=== PATIENT | female | born 1945 | race Caucasian/White ===

== ENCOUNTER 2021-03-14 07:35 | Day surgery (SDC) | payer MEDICARE ==
[~2021-03-14] VITALS: Ht 170.2 cm; Wt 83.1 kg
[2021-03-14] MEDS ORDERED: METF500C (08:13)
[2021-03-14] MEDS ORDERED: LORA10ER (08:13)
[2021-03-14] MEDS ORDERED: COREG6.25 MG (08:13)
[2021-03-14] MEDS ORDERED: GLIM4 (08:13)
[2021-03-14] MEDS ORDERED: PROP10 (08:14)
[2021-03-14] MEDS ORDERED: ARMOUR THYROID90 M2 (08:15)
[2021-03-14] MEDS ORDERED: VIIBRYD1 EAC2 (08:16)
== END 2021-03-14 10:17 | disposition home or self-care (01) ==
LOC: ORSCSDS 07:35
PROVIDERS: Surgery
PROC: 0DBM8ZX Excision of Descending Colon, Via Natural or Artificial Opening Endoscopic, Diagnostic (ICD-10-PCS; principal; 2021-03-14 08:45)
PROC: 0DBL8ZX Excision of Transverse Colon, Via Natural or Artificial Opening Endoscopic, Diagnostic (ICD-10-PCS; principal; 2021-03-14 08:45)
PROC: 0DBH8ZX Excision of Cecum, Via Natural or Artificial Opening Endoscopic, Diagnostic (ICD-10-PCS; principal; 2021-03-14 08:45)
PROC: 0DBK8ZX Excision of Ascending Colon, Via Natural or Artificial Opening Endoscopic, Diagnostic (ICD-10-PCS; principal; 2021-03-14 08:45)
DX: R19.5 Other fecal abnormalities (principal); D12.2 Benign neoplasm of ascending colon; D12.3 Benign neoplasm of transverse colon; D12.4 Benign neoplasm of descending colon; K63.89 Other specified diseases of intestine; K57.30 Diverticulosis of large intestine without perforation or abscess without bleeding; Z86.010 Personal history of colon polyps; I10 Essential (primary) hypertension; G25.0 Essential tremor; F32.9 Major depressive disorder, single episode, unspecified; E78.2 Mixed hyperlipidemia; E11.9 Type 2 diabetes mellitus without complications; Z79.84 Long term (current) use of oral hypoglycemic drugs; Z79.899 Other long term (current) drug therapy; F17.210 Nicotine dependence, cigarettes, uncomplicated
CPT/HCPCS: 82947; 88305; J0330; J0461; J2405; J2704; J7120

== ENCOUNTER 2021-07-18 03:12 | Emergency (ER) | payer MEDICARE ==
[~2021-07-18] VITALS: Ht 170.2 cm; Wt 83.0 kg
[~2021-07-18 03:12] MED LIST: ARMOUR THYROID90 M2; COREG6.25 MG; GLIM4; LORA10ER; METF500C; PROP10; VIIBRYD1 EAC2
== END 2021-07-18 05:39 | disposition home or self-care (01) ==
LOC: ER 03:12
DX: M25.551 Pain in right hip (principal); F17.200 Nicotine dependence, unspecified, uncomplicated; Z88.0 Allergy status to penicillin; Z79.899 Other long term (current) drug therapy; Z79.84 Long term (current) use of oral hypoglycemic drugs
CPT/HCPCS: 73502; 96372; 99283-25; J1885

== ENCOUNTER 2021-07-27 08:38 | Inpatient (IN) | payer MEDICARE ==
[~2021-07-27] VITALS: Ht 170.2 cm; Wt 83.0 kg
[~2021-07-27 08:38] MED LIST changes: -ARMOUR THYROID90 M2; -GLIM4; -METF500C; -PROP10; -VIIBRYD1 EAC2
[2021-07-27 09:01] LABS: BASOPHILS ABSOLUTE AUTO 0.16 K/mm3 (0.00-0.23); BASOPHILS PERCENT AUTO 1 % (0-2); EOSINOPHILS ABSOLUTE AUTO 0.26 K/mm3 (0.00-0.68); EOSINOPHILS PERCENT AUTO 1 % (0-6); Hematocrit 30.7 % (33.0-51.0); Hemoglobin 10.1 g/dL (11.5-16.0); IMMATURE GRAN PERCENT AUTO 4 % (0-1); LYMPHOCYTES ABSOLUTE AUTO 2.96 K/mm3 (0.84-5.20); LYMPHOCYTES PERCENT AUTO 15 % (21-46); MONOCYTES PERCENT AUTO 12 % (4-13); Mean Corpuscular HGB 32.9 pg (26.0-34.0); Mean Corpuscular HGB Conc 32.9 g/dL (31.5-36.5); Mean Corpuscular Volume 100 fL (80-100); NEUTROPHILS ABSOLUTE AUTO 13.38 K/mm3 (1.96-9.15); NEUTROPHILS PERCENT AUTO 67 % (41-73); Platelet Count 145 K/mm3 (150-400); RDW Coefficient Variation 13.2 % (11.7-14.2); RDW Standard Deviation 47.9 fL (35.1-46.3); Red Blood Cell Count 3.07 M/mm3 (3.80-5.20); White Blood Cell Count 19.96 K/mm3 (4.00-11.30)
[2021-07-27 09:19] LABS: Alanine Aminotransfer (ALT/SGP 19 U/L (12-78); Albumin, Blood 2.7 g/dL (3.4-5.0); Albumin/Globulin Ratio 0.8 (0.8-1.8); Alk Phos 56 U/L (50-136); Anion Gap 6 mmol/L (6-16); Aspartate Aminotrans (AST/SGOT 16 U/L (12-37); Bilirubin, Total 0.4 mg/dL (0.1-1.0); Blood Urea Nitrogen 52 mg/dL (8-24); Bun/Creatinine Ratio 71.9 (12.0-20.0); CO2, Blood 27 mmol/L (21-32); Calcium, Blood 9.4 mg/dL (8.5-10.1); Chloride, Blood 102 mmol/L (98-108); Creatinine, Blood 0.72 mg/dL (0.40-1.00); Globulin, Blood 3.5 g/dL (2.2-4.0); Glomerular Filtration Rate >60 (60-); Glucose, Blood 239 mg/dL (70-99); Potassium, Blood 4.8 mmol/L (3.5-5.5); Sodium, Blood 135 mmol/L (136-145); Total Protein, Blood 6.2 g/dL (6.4-8.2)
[2021-07-27] MEDS ORDERED: ARMOUR THYROID90 M2 PO (12:27)
[2021-07-27] MEDS ORDERED: LOSARTAN POTASS25 M2 PO (12:27)
[2021-07-27] MEDS ORDERED: VIIBRYD40 MG PO (12:28)
[2021-07-27] MEDS ORDERED: PROP10 PO (12:28)
[2021-07-27] MEDS ORDERED: METF500 PO (12:29)
[2021-07-27] MEDS ORDERED: [UNRECOGNIZED DRUG - REMARK] PO (12:29)
[2021-07-27] MEDS ORDERED: GLIM2 PO (12:30)
[2021-07-27 13:07] LABS: Hematocrit 25.5 % (33.0-51.0); Hemoglobin 8.9 g/dL (11.5-16.0)
[2021-07-27 13:45] LABS: SARS-Cov-2 (COVID-19) PCR, MMC NEGATIVE (NEGATIVE)
[2021-07-27 15:17] LABS: Source, Urine Clean Catch
[2021-07-27 15:18] LABS: Hematocrit 25.5 % (33.0-51.0); Hemoglobin 8.9 g/dL (11.5-16.0)
[2021-07-27 15:23] LABS: Appearance, Urine Hazy (Clear); Bilirubin, Urine Neg (Neg); Blood, Urine Neg (Neg); Color, Urine Yellow (P-Yellow); Glucose Qualitative, Urine Neg (Neg); Ketones, Urine Neg (Neg); Leukocyte Esterase, Urine Neg (Neg); Nitrite, Urine Neg (Neg); Protein, Urine Neg (Neg); Urobilinogen, Urine NORM (Normal)
[2021-07-27 15:40] LABS: International Normalized Ratio 1.04; Prothrombin Time Results 10.9 Sec (9.7-11.5)
[2021-07-27 15:44] LABS: Bacteria Rare /hpf; Red Blood Cells, Urine 0-2 /hpf (0-2); Squamous Epithelial Cells Not Seen /hpf (Few); White Blood Cells, Urine 0-2 /hpf (0-5)
--- NOTE | 2021-07-27 17:13 | NUR ---
Met with pt to fill out POLST. She indicated on admission she wanted to have a code status of DNR, so I met with her to fill out POLST. She is alert, oriented and pleasant. She was able to make her needs and wants known without difficulty.
--- NOTE | 2021-07-27 18:33 | NUR ---
ADMIT/SHIFT SUMMARY: PT IS NEW ADMIT FROM ER FOR C/O LOWER ABD PAIN AND BLACK TARRY STOOL SINCE LAST NOC. PT ADMITTED TO PCU W/HOPES OF TRANSFER TO [facility], AWAITING TO HEAR IF TRANSFER WILL BE POSSIBLE. PT A&Ox4, ABLE TO MAKE NEEDS KNOWN, SATS >93% ON RA, SR/ST ON MONITOR. PT C/O TENDERNESS W/PALPATION TO LOWER ABD. PT UP TO BSC A FEW TIMES W/SBA AND WALKER. NO BM BUT MARROON SMEAR NOTED WHEN PT ASSISTED WITH WIPING. DR GAMINO IS AWARE. PROTONIX INFUSION CONTINUES. AT THIS TIME, PT RESTING QUIETLY IN BED WITH CALL LIGHT IN REACH. WILL CONTINUE TO MONITOR AND TREAT ACCORDINGLY UNTIL CHANGE OF SHIFT.
[2021-07-27 22:10] LABS: Hematocrit 21.4 % (33.0-51.0); Hemoglobin 7.3 g/dL (11.5-16.0)
--- NOTE | 2021-07-28 01:30 | NUR ---
ASSUMED CARE OF PT AT 1900. PATIENT HAS COMPLAINED OF A DULL ACHE IN LOWER BELLY REGION THAT IS WORSE WITH PALPATION. PATIENT ALSO C/O PAIN IN RIGHT IV SITE (NONINFILTRATED, LOCATION BASED PAIN). PATIENT HAD A BOWEL MOVEMENT OF A SMALL AMOUNT OF TARRY BLACK STOOL THAT IS MAROON IN COLOR. CHRONIC CONGESTED COUGH NOTED. SINUS ON MONITOR. HGB TRENDING DOWN, OF 21:45 IT'S 7.3.
[2021-07-28 04:39] LABS: Hematocrit 20.9 % (33.0-51.0); Hemoglobin 7.1 g/dL (11.5-16.0); Mean Corpuscular HGB 33.3 pg (26.0-34.0); Mean Corpuscular Volume 98 fL (80-100); Mean Platelet Volume 10.8 fL (9.1-12.4); Platelet Count 121 K/mm3 (150-400); RDW Coefficient Variation 13.6 % (11.7-14.2); Red Blood Cell Count 2.13 M/mm3 (3.80-5.20); White Blood Cell Count 17.24 K/mm3 (4.00-11.30)
[2021-07-28 04:51] LABS: Alanine Aminotransfer (ALT/SGP 14 U/L (12-78); Albumin, Blood 2.3 g/dL (3.4-5.0); Albumin/Globulin Ratio 0.8 (0.8-1.8); Alk Phos 47 U/L (50-136); Anion Gap 6 mmol/L (6-16); Aspartate Aminotrans (AST/SGOT 16 U/L (12-37); Bilirubin, Total 0.5 mg/dL (0.1-1.0); Blood Urea Nitrogen 19 mg/dL (8-24); Bun/Creatinine Ratio 36.3 (12.0-20.0); CO2, Blood 29 mmol/L (21-32); Calcium, Blood 7.8 mg/dL (8.5-10.1); Chloride, Blood 103 mmol/L (98-108); Creatinine, Blood 0.52 mg/dL (0.40-1.00); Glomerular Filtration Rate >60 (60-); Glucose, Blood 147 mg/dL (70-99); Potassium, Blood 3.8 mmol/L (3.5-5.5); Sodium, Blood 138 mmol/L (136-145); Total Protein, Blood 5.3 g/dL (6.4-8.2)
[2021-07-28 09:41] LABS: Hematocrit 19.6 % (33.0-51.0); Hemoglobin 6.5 g/dL (11.5-16.0)
--- NOTE | 2021-07-28 10:32 | NUR ---
UPDATE AT 1019, PT HGB CAME BACK WITH A VALUE OF 6.5 AND HCT VALUE OF 19.6. DR GAMINO WAS NOTIFIED AND ORDERED 2 UNITS OF PACKED RED BLOOD CELLS.
--- NOTE | 2021-07-28 16:54 | NUR ---
SHIFT SUMMARY PT A/0 X4, ANXIOUS AT TIMES. PT O2 SATS > 94% ON RA T/O SHIFT. NO REPORTS OF CHEST PAIN/PRESSURE. PT DID REPORT PAIN IN HANDS, STATES "NEUROPATHY PAIN," TREATED PER EMAR. PT HGB 6.5 AND HCT 19.6 @ 0900, DR GAMINO NOTIFIED, 2 UNITS OF PRBC ODERED AND GIVEN. PT BP WERE HYPOTENSIVE WITH THE MAP'S IN THE 50'S WHEN BLOOD BEGAN TO BE ADMINISTERED, BOLUS OF FLUIDS GIVEN PER EMAR. PT LUNGS WERE CLEAR UNTIL THE LAST 1-2 HOURS OF BLOOD INFUSION, EXPIRATORY WHEEZES HEARD. PT WAS SEEN BY DR CUNNINGHAM, PROCEDURE PLANNED FOR AM [place], NPO AFTER MIDNIGHT EXCEPT FOR WATER/ICE.
[2021-07-28 18:10] LABS: Hematocrit 25.5 % (33.0-51.0); Hemoglobin 8.8 g/dL (11.5-16.0)
--- NOTE | 2021-07-28 22:24 | NUR ---
ASSUMED CARE OF PT AT 1900. PATIENT SITTING UP IN BED WATCHING TV. PATIENT REPORTS WHAT SHE DESCRIBES NEUROPATHY PAIN IN HER HAND AND ELBOW, ALONG WITH LOWER BELLY PAIN. MEDICATED PER EMAR.
[2021-07-29 00:35] LABS: Hemoglobin 8.7 g/dL (11.5-16.0)
--- NOTE | 2021-07-29 02:28 | NUR ---
A/OX4 WITH PERIODS OF HIGH ANXIETY. DNR. PATIENT REPORTS HAND/ELBOW/STOMACH PAIN THAT SHE DESCRIBES NEUROPATHY PAIN. LS CLEAR AND DIM IN BASES, CONGESTED COUGH THAT IS CHRONIC IN NATURE (CIGARETTE SMOKER). SR AT 87, TRACE EDEMA BLE. NO BOWEL MOVEMENTS THIS SHIFT, MULTIPLE INCONTINENT URINE EPISODES IN BRIEFS. HGB 8.7. PATIENT NPO FOR MORNING EGD. WILL REPORT TO DAYSHIFT RN.
[2021-07-29 04:31] LABS: Hemoglobin 8.4 g/dL (11.5-16.0); Mean Corpuscular HGB 32.7 pg (26.0-34.0); Mean Platelet Volume 11.2 fL (9.1-12.4); Platelet Count 109 K/mm3 (150-400); RDW Coefficient Variation 16.8 % (11.7-14.2); RDW Standard Deviation 56.9 fL (35.1-46.3); Red Blood Cell Count 2.57 M/mm3 (3.80-5.20); White Blood Cell Count 12.31 K/mm3 (4.00-11.30)
[2021-07-29 04:32] LABS: Mean Corpuscular Volume 93 fL (80-100)
[2021-07-29 04:45] LABS: Albumin, Blood 2.3 g/dL (3.4-5.0); Anion Gap 3 mmol/L (6-16); Blood Urea Nitrogen 8 mg/dL (8-24); Bun/Creatinine Ratio 15.6 (12.0-20.0); CO2, Blood 30 mmol/L (21-32); Calcium, Blood 8.1 mg/dL (8.5-10.1); Chloride, Blood 105 mmol/L (98-108); Creatinine, Blood 0.51 mg/dL (0.40-1.00); Glomerular Filtration Rate >60 (60-); Glucose, Blood 155 mg/dL (70-99); Phosphorus, Blood 2.4 mg/dL (2.5-4.9); Potassium, Blood 3.6 mmol/L (3.5-5.5); Sodium, Blood 138 mmol/L (136-145)
--- NOTE | 2021-07-29 08:54 | NUR ---
PT RECENTLY TO DAYSURGERY BY T[facility]IRA History, Chart, Medications and Allergies reviewed before start of procedure. LUNGS WITH SLIGHT WHEEZE, PT REPORTS BEING SMOKER. WILL DISCUSS WITH DR CUNNINGHAM. Patient confirms NPO status and agrees with scheduled surgery. Pre-Op teaching done. Pt verbalizes understanding. PT COMFORTABLE ON BED. DENIES CP/SOB.
--- NOTE | 2021-07-29 08:58 | NUR ---
PT HAS PROTONIX DRIP INFUSING. PT HAS POWERGLIDES IN EACH ARM THAT APPEAR TO BE WNL.
--- NOTE | 2021-07-29 09:35 | NUR ---
07/29/21 0935 Melvin Farrar History, Chart, Medications and Allergies reviewed before start of procedure. Patient confirms NPO status and agrees with scheduled surgery. 3-LEAD EKG REVIEWED WITH PHYSICIAN PRIOR TO START OF PROCEDURE. MONITOR INTACT WITH CONTINUOUS PULSE OXIMETRY AND INTERMITTENT BP. PATIENT DETERMINED TO BE ASA APPROPRIATE FOR PROPOFOL SEDATION PRIOR TO START OF PROCEDURE BY DR. CUNNINGHAM. Bite Block Placed, WILL BE REMOVED AFTER PROCEDURE.
--- NOTE | 2021-07-29 12:43 | NUR ---
UPDATE PT ARRIVED FROM PROCEDURE AT 1025 VIA HOSPITAL BED OCCOMPANIED BY 1 MEDICAL STAFF. PT ALERT AND ON RA. REPORT WAS RECIEVED AT BEDSIDE.
--- NOTE | 2021-07-29 17:41 | NUR ---
SHIFT SUMMARY PT A/O X4 AND COOPERATIVE OF CARE. VSS WITH O2 SATS >94% ON ROMM AIR. PT HAD ENDOSCOPY TODAY AND WAS NOTED THAT PT HAD ACTIVE ULCER, ULCER WAS CAUTERIZED. PT HAS BEEN TOLERATING DIET SINCE BEING BACK FROM PROCEDURE, REPORTING SLIGHT PAIN IN ABDOMEN. PT HAS HAD MULTIPLE URGENT ELIMINATIONS WHEN STAFF IS IN THE ROOM. PT ABLE TO LIFT HIPS FOR PLACEMENT OF FRACTURE REED. PT STILL REPORTS "NEUROPIC PAIN" IN RIGHT HAND THAT IS NOW REPORTED TO BE MOVING DOWN TO RIGHT FOOT, TREATED PER EMAR.
--- NOTE | 2021-07-29 21:15 | NUR ---
Assumed care of pt at 1900. Patient laying in bed and appeared less anxious. Urinary urgency/freq continues, pt reports that as her baseline. Small smearing of the same maroon/tarry stool. Had extensive talk regarding smoking cessation, the patient would like to know how to obtain the nicotine patches as they are quite costly for her. Pt reports the alcohol use is a way for her to fall asleep along with tylenol PM, discussed there might be a benefit to seeing her PCP regarding her sleep patterns. Patient very receptive to making healthy lifestyle changes for her health. VSS. Call light within reach and bed in low position.
--- NOTE | 2021-07-30 05:23 | NUR ---
A/OX4. MILD ANXIETY. PATIENT EXPRESSES CONCERN OVER WHO WILL HELP WITH HER CARE ONCE SHE'S HOME AND WOULD LIKE TO SPEAK TO THE PHYSICIAN ABOUT HOME CARE CONSULT. MILD/MOD PAIN IN ABDOMEN AND NEUROPATHIC PAIN IN R ARM. CLEAR UPPER, DIM LOWER. NSR AVG 78. VSS WITH NO HYPOTENSIVE EPISODES. USES BEDPAN AND CALLS APPROPRIATELY. SMALL SMEARING OF THE SAME MAROON/TARRY STOOLS SHE'S HAD THE PREVIOUS DAYS. BLADDER URGENCY/FREQUENCY THAT PATIENT DESCRIBES HER NORMAL. WILL REPORT TO GOLDEN ALCAZAR.
[2021-07-30 09:29] LABS: Hematocrit 27.2 % (33.0-51.0); Hemoglobin 9.4 g/dL (11.5-16.0)
[2021-07-30] MEDS ORDERED: NICO21TP TOP (14:08)
[2021-07-30] MEDS ORDERED: OMEP20ER PO (14:13)
--- NOTE | 2021-07-30 17:39 | NUR ---
DISCHARGE SUMMARY PT HAD EGD YESTERDAY WITH CAUTERIZATION OF NSAID ASSOCIATED ULCERS. PT EXPRESSED CONCERNS WITH BEING ABLE TO CARE FOR HERSELF AT HOME AND WORKED WITH PHYSICAL THERAPY AND OCCUPATIONAL THERAPY THIS SHIFT. HOME WITH HOME HEALTH AND PHYSICAL THERAPY WAS RECOMMENDED. PRIOR TO DISCHARGE PT HAD A MAROON COLORED STOOL AND THE PHYSICIAN WAS NOTIFIED. PHYSICIAN SAW THE PATIENT AND NOTIFIED HER OF HER OPTIONS AND RECOMMENDED THAT SHE DR. LANEE OUT PATIENT FOR A COLONOSCOPY IF THE THE MAROON COLORED STOOLS PERSIST. PT VERBALIZED UNDERSTANDING. SHE WAS DRIVEN HOME BY HER FRIEND.
== END 2021-07-30 16:52 | disposition home health service (06) | DRG 377 ==
LOC: ER 08:38 → PCU 14:14
PROVIDERS: Emergency Medicine; Internal Medicine; Internal Medicine Gastroenterology; Nurse Practitioner Acute Care; ADMIT Internal Medicine
PROC: 0DJ08ZZ Inspection of Upper Intestinal Tract, Via Natural or Artificial Opening Endoscopic (ICD-10-PCS; 2021-07-29)
PROC: 0DB68ZX Excision of Stomach, Via Natural or Artificial Opening Endoscopic, Diagnostic (ICD-10-PCS; principal; 2021-07-29 09:00)
DX: K26.4 Chronic or unspecified duodenal ulcer with hemorrhage (principal); R57.8 Other shock; D62 Acute posthemorrhagic anemia; Z20.822 Contact with and (suspected) exposure to COVID-19; D69.6 Thrombocytopenia, unspecified; E03.9 Hypothyroidism, unspecified; F32.A Depression, unspecified; I69.398 Other sequelae of cerebral infarction; G89.29 Other chronic pain; I10 Essential (primary) hypertension; E11.9 Type 2 diabetes mellitus without complications; F17.210 Nicotine dependence, cigarettes, uncomplicated; Z88.0 Allergy status to penicillin; Z79.84 Long term (current) use of oral hypoglycemic drugs; Z79.899 Other long term (current) drug therapy
CPT/HCPCS: 36415; 36430; 71045; 74177; 80053; 80069; 81001; 82947; 85014; 85018; 85025; 85027; 85610; 86850; 86900; 86901; 86923; 88305; 88342; 96365; 96376; 97110; 97162; 97165; 97530; 97535; 99285-25; A9270; C1751; C9113; J2704; J2765; J7030; J7120; P9016; Q9967; U0004

== ENCOUNTER 2022-07-12 20:22 | Emergency (ER) | payer MEDICARE, OTHER ==
[~2022-07-12] VITALS: Ht 170.2 cm; Wt 82.5 kg
[~2022-07-12 20:22] MED LIST changes: +ARMOUR THYROID90 M2 PO; +GLIM2 PO; +LOSARTAN POTASS25 M2 PO; +METF500 PO; +NICO21TP TOP; +OMEP20ER PO; +PROP10 PO; +VIIBRYD40 MG PO; +[UNRECOGNIZED DRUG - REMARK] PO
== END 2022-07-13 02:36 | disposition home or self-care (01) ==
LOC: ER 20:22
DX: S30.0XXA Contusion of lower back and pelvis, initial encounter (principal); E11.9 Type 2 diabetes mellitus without complications; E03.9 Hypothyroidism, unspecified; F17.210 Nicotine dependence, cigarettes, uncomplicated; W19.XXXA Unspecified fall, initial encounter; Z88.0 Allergy status to penicillin; Z79.899 Other long term (current) drug therapy; Z79.84 Long term (current) use of oral hypoglycemic drugs; Z79.890 Hormone replacement therapy
CPT/HCPCS: 36415; 72100; 72192; 73502; 82947; 96374; 96375; 99284-25; A9270; J2405; J3010

== ENCOUNTER 2022-07-31 10:56 | Emergency (ER) | payer MEDICARE, OTHER ==
[~2022-07-31] VITALS: Ht 170.2 cm; Wt 81.7 kg
[2022-07-31 12:24] LABS: BASOPHILS ABSOLUTE AUTO 0.17 K/mm3 (0.00-0.23); BASOPHILS PERCENT AUTO 2 % (0-2); EOSINOPHILS ABSOLUTE AUTO 0.13 K/mm3 (0.00-0.68); EOSINOPHILS PERCENT AUTO 1 % (0-6); Hematocrit 39.6 % (33.0-51.0); Hemoglobin 12.8 g/dL (11.5-16.0); IMMATURE GRAN ABSOLUTE AUTO 0.21 K/mm3 (0.00-0.10); IMMATURE GRAN PERCENT AUTO 2 % (0-1); LYMPHOCYTES PERCENT AUTO 16 % (21-46); MONOCYTES ABSOLUTE AUTO 1.67 K/mm3 (0.16-1.47); MONOCYTES PERCENT AUTO 15 % (4-13); Mean Corpuscular HGB 31.4 pg (26.0-34.0); Mean Corpuscular HGB Conc 32.3 g/dL (31.5-36.5); Mean Corpuscular Volume 97 fL (80-100); Mean Platelet Volume 11.3 fL (9.1-12.4); NEUTROPHILS ABSOLUTE AUTO 7.14 K/mm3 (1.96-9.15); NEUTROPHILS PERCENT AUTO 64 % (41-73); Platelet Count 252 K/mm3 (150-400); RDW Coefficient Variation 14.2 % (11.7-14.2); RDW Standard Deviation 50.7 fL (35.1-46.3); Red Blood Cell Count 4.08 M/mm3 (3.80-5.20); White Blood Cell Count 11.12 K/mm3 (4.00-11.30)
[2022-07-31 12:41] LABS: Albumin, Blood 3.1 g/dL (3.4-5.0); Albumin/Globulin Ratio 0.7 (0.8-1.8); Bilirubin, Total 0.6 mg/dL (0.1-1.0); Bun/Creatinine Ratio 40.9 (12.0-20.0); Calcium, Blood 9.2 mg/dL (8.5-10.1); Creatinine, Blood 0.49 mg/dL (0.40-1.00); Globulin, Blood 4.6 g/dL (2.2-4.0); Potassium, Blood 3.6 mmol/L (3.5-5.5); Total Protein, Blood 7.7 g/dL (6.4-8.2)
[2022-07-31] MEDS ORDERED: CEPH500 PO (15:46)
== END 2022-07-31 15:50 | disposition home or self-care (01) ==
LOC: ER 10:56
PROVIDERS: Physician Assistant
DX: L03.116 Cellulitis of left lower limb (principal); E11.51 Type 2 diabetes mellitus with diabetic peripheral angiopathy without gangrene; F17.210 Nicotine dependence, cigarettes, uncomplicated
CPT/HCPCS: 36415; 80053; 85025; 93971

== ENCOUNTER → 2023-05-22 | Outpatient (CLI) | payer MEDICARE | LOC: LAB 12:00 | DX: J32.0 Chronic maxillary sinusitis (principal) ==

== ENCOUNTER 2023-09-13 04:43 | Emergency (ER) | payer MEDICARE ==
[~2023-09-13] VITALS: Ht 172.7 cm; Wt 72.6 kg
[~2023-09-13 04:43] MED LIST changes: +CEPH500 PO
[2023-09-13 05:19] LABS: Hematocrit 42.2 % (33.0-51.0); Hemoglobin 13.8 g/dL (11.5-16.0); Mean Corpuscular HGB 28.2 pg (26.0-34.0); Mean Corpuscular HGB Conc 32.7 g/dL (31.5-36.5); Mean Corpuscular Volume 86 fL (80-100); Mean Platelet Volume 10.1 fL (9.1-12.4); Platelet Count 284 K/mm3 (150-400); RDW Coefficient Variation 13.3 % (11.7-14.2); RDW Standard Deviation 41.8 fL (35.1-46.3); White Blood Cell Count 15.47 K/mm3 (4.00-11.30)
[2023-09-13 06:04] LABS: Albumin, Blood 3.3 g/dL (3.4-5.0); Albumin/Globulin Ratio 0.8 (0.8-1.8); Bilirubin, Total 0.7 mg/dL (0.1-1.0); Bun/Creatinine Ratio 26.9 (12.0-20.0); Calcium, Blood 8.6 mg/dL (8.5-10.1); Creatinine, Blood 0.56 mg/dL (0.40-1.00); Globulin, Blood 4.1 g/dL (2.2-4.0); Potassium, Blood 4.2 mmol/L (3.5-5.5); Total Protein, Blood 7.4 g/dL (6.4-8.2)
[2023-09-13 06:14] LABS: BAND PERCENT MAN 4 % (0-8); BASOPHILS PERCENT MAN 0 % (0-2); EOSINOPHILS PERCENT MAN 0 % (0-6); LYMPHOCYTES ABSOLUTE MAN 2.47 K/mm3 (0.84-5.20); LYMPHOCYTES PERCENT MAN 16 % (21-46); METAMYELOCYTE PERCENT MAN 2 % (0-0); MONOCYTES ABSOLUTE MAN 0.92 K/mm3 (0.16-1.47); MONOCYTES PERCENT MAN 6 % (4-13); MYELOCYTE ABSOLUTE MAN 0.61 K/mm3 (0.00-0.00); MYELOCYTE PERCENT MAN 4 % (0-0); NEUTROPHILS ABSOLUTE MAN 11.13 K/mm3 (1.96-9.15); SEG NEUTROPHILS PERCENT MAN 68 % (41-73); TOTAL CELLS COUNTED 100
[2023-09-13 07:35] LABS: Influenza A, PCR NEGATIVE (NEGATIVE); Influenza B, PCR NEGATIVE (NEGATIVE); Resp Syncytial Virus, PCR NEGATIVE (NEGATIVE); SARS-Cov-2 (COVID-19) PCR, MMC NEGATIVE (NEGATIVE)
[2023-09-13 09:29] VITALS: BP 167/74
== END 2023-09-13 09:31 | disposition home or self-care (01) ==
LOC: ER 04:43
PROVIDERS: Emergency Medicine; Student in an Organized Health Care Education/Training Program
DX: S00.83XA Contusion of other part of head, initial encounter (principal); S00.03XA Contusion of scalp, initial encounter; S40.011A Contusion of right shoulder, initial encounter; S80.01XA Contusion of right knee, initial encounter; F17.200 Nicotine dependence, unspecified, uncomplicated; E87.1 Hypo-osmolality and hyponatremia; W01.0XXA Fall on same level from slipping, tripping and stumbling without subsequent striking against object, initial encounter; Z11.52 Encounter for screening for COVID-19
CPT/HCPCS: 0241U; 70450; 71045; 72125; 73030; 73562-RT; 80053; 85025; 93005; 93010; 99284-25

== ENCOUNTER 2023-10-23 13:27 | Inpatient (IN) | payer MEDICARE ==
[~2023-10-23] VITALS: Ht 170.2 cm; Wt 79.6 kg
[2023-10-23 15:03] LABS: BASOPHILS ABSOLUTE AUTO 0.46 K/mm3 (0.00-0.23); BASOPHILS PERCENT AUTO 2 % (0-2); EOSINOPHILS ABSOLUTE AUTO 0.03 K/mm3 (0.00-0.68); EOSINOPHILS PERCENT AUTO 0 % (0-6); Hematocrit 39.9 % (33.0-51.0); Hemoglobin 13.8 g/dL (11.5-16.0); IMMATURE GRAN ABSOLUTE AUTO 0.77 K/mm3 (0.00-0.10); IMMATURE GRAN PERCENT AUTO 4 % (0-1); LYMPHOCYTES ABSOLUTE AUTO 1.98 K/mm3 (0.84-5.20); LYMPHOCYTES PERCENT AUTO 9 % (21-46); MONOCYTES ABSOLUTE AUTO 1.21 K/mm3 (0.16-1.47); MONOCYTES PERCENT AUTO 6 % (4-13); Mean Corpuscular HGB 27.9 pg (26.0-34.0); Mean Corpuscular HGB Conc 34.6 g/dL (31.5-36.5); Mean Corpuscular Volume 81 fL (80-100); Mean Platelet Volume 10.2 fL (9.1-12.4); NEUTROPHILS PERCENT AUTO 80 % (41-73); Platelet Count 392 K/mm3 (150-400); RDW Coefficient Variation 12.6 % (11.7-14.2); Red Blood Cell Count 4.94 M/mm3 (3.80-5.20); White Blood Cell Count 21.95 K/mm3 (4.00-11.30)
[2023-10-23 15:19] LABS: Albumin/Globulin Ratio 0.7 (0.8-1.8); Bilirubin, Total 0.8 mg/dL (0.1-1.0); Bun/Creatinine Ratio 30.6 (12.0-20.0); Creatinine, Blood 0.36 mg/dL (0.40-1.00); Globulin, Blood 4.3 g/dL (2.2-4.0); Potassium, Blood 4.3 mmol/L (3.5-5.5); Total Protein, Blood 7.3 g/dL (6.4-8.2)
[2023-10-23 15:52] LABS: Source, Urine Straight Cath
[2023-10-23 15:58] LABS: Appearance, Urine Cloudy (Clear); Bilirubin, Urine Neg (Neg); Blood, Urine 4+ (Neg); Color, Urine Yellow (P-Yellow); Glucose Qualitative, Urine Neg (Neg); Ketones, Urine Neg (Neg); Leukocyte Esterase, Urine 3+ (Neg); Nitrite, Urine Pos (Neg); Protein, Urine 2+ (Neg); Urobilinogen, Urine NORM (Normal)
[2023-10-23 16:07] LABS: Bacteria Many /hpf; Squamous Epithelial Cells Few /hpf (Few); Transitional Epithelial Cells Few /hpf (0-Rare)
[2023-10-23 16:32] LABS: U Amphetamine Screen Not Detected; U Barbituate Screen Not Detected; U Benzodiazapine Screen Not Detected; U Buprenorphine Screen Not Detected; U Cannabinoids Screen Not Detected; U Cocaine Screen Not Detected; U Methadone Screen Not Detected; U Methamphetamine Screen Not Detected; U Opiates Screen Not Detected; U Oxycodone Screen Not Detected; U Phencyclidine Screen Not Detected
[2023-10-23] MEDS ORDERED: CEPH500 PO (19:05)
[2023-10-23] MEDS ORDERED: NIVA THYROID60 MG PO (19:06)
[2023-10-23] MEDS ORDERED: OXYB5 PO (19:06)
[2023-10-23] MEDS ORDERED: EFFEXOR XR150 MG PO (19:06)
[2023-10-23 21:00] VITALS: BP 150/88
[2023-10-23 23:13] VITALS: BP 183/66
[2023-10-23] MEDS ORDERED: LOSA50 PO (23:57)
[2023-10-24] MEDS ORDERED: Ventolin/Prove6.7 GM INH
[2023-10-24 04:15] VITALS: BP 154/60
[2023-10-24 05:09] LABS: BASOPHILS ABSOLUTE AUTO 0.44 K/mm3 (0.00-0.23); BASOPHILS PERCENT AUTO 2 % (0-2); EOSINOPHILS ABSOLUTE AUTO 0.01 K/mm3 (0.00-0.68); EOSINOPHILS PERCENT AUTO 0 % (0-6); Hematocrit 40.2 % (33.0-51.0); Hemoglobin 13.6 g/dL (11.5-16.0); IMMATURE GRAN ABSOLUTE AUTO 0.76 K/mm3 (0.00-0.10); IMMATURE GRAN PERCENT AUTO 3 % (0-1); LYMPHOCYTES PERCENT AUTO 7 % (21-46); MONOCYTES ABSOLUTE AUTO 1.15 K/mm3 (0.16-1.47); MONOCYTES PERCENT AUTO 5 % (4-13); Mean Corpuscular HGB 27.7 pg (26.0-34.0); Mean Corpuscular HGB Conc 33.8 g/dL (31.5-36.5); Mean Corpuscular Volume 82 fL (80-100); Mean Platelet Volume 10.2 fL (9.1-12.4); NEUTROPHILS ABSOLUTE AUTO 18.41 K/mm3 (1.96-9.15); NEUTROPHILS PERCENT AUTO 83 % (41-73); Platelet Count 369 K/mm3 (150-400); RDW Coefficient Variation 12.6 % (11.7-14.2); RDW Standard Deviation 37.3 fL (35.1-46.3); Red Blood Cell Count 4.91 M/mm3 (3.80-5.20); White Blood Cell Count 22.27 K/mm3 (4.00-11.30)
[2023-10-24 05:28] LABS: Albumin, Blood 2.9 g/dL (3.4-5.0); Albumin/Globulin Ratio 0.7 (0.8-1.8); Bilirubin, Total 0.8 mg/dL (0.1-1.0); Bun/Creatinine Ratio 24.2 (12.0-20.0); Calcium, Blood 8.6 mg/dL (8.5-10.1); Creatinine, Blood 0.37 mg/dL (0.40-1.00); Globulin, Blood 3.9 g/dL (2.2-4.0); Magnesium, Blood 1.7 mg/dL (1.6-2.4); Potassium, Blood 3.7 mmol/L (3.5-5.5); Total Protein, Blood 6.8 g/dL (6.4-8.2)
--- NOTE | 2023-10-24 06:36 | NUR ---
EOS: PATIENT A/O X 2-3 COOPERATIVE PLEASANT, DENIES CHEST PAIN PRESSURE OR SOB. NOT IMPULSIVE, BED ALARM ON FOR SAFETY Q2 TURNS. NO CONCERNS AT THIS TIME FINISHING HER 75mL/HR OF NS .9% 1/2 NS AFTER. PATIENT HAS BEEN RESTING MOST OF THE NIGHT DID NEED A 1 X PRN HYDRALAZINE FOR BLOOD PRESSURE >180. LARGE UNDOCUMENTED URINARY VOID. NO CONCERNS AT THIS TIME.
[2023-10-24 08:13] VITALS: BP 160/73
[2023-10-24 11:47] VITALS: BP 162/82
[2023-10-24 15:46] VITALS: BP 158/69
--- NOTE | 2023-10-24 17:13 | NUR ---
SHIFT SUMMARY: PT ALERT AND ORIENTED X3, ABLE TO FOLLOW COMMANDS AND MAKE NEEDS KNOWN. FORGETFUL AT TIMES, HX OF DEMENTIA. BED ALARM ON SAFETY. STRENGTH WEAK, EQUAL BILATERALLY. BP AND HR STABLE, AFEBRILE, SPO2 >94% ON ROOM AIR. RESPIRATIONS EVEN AND UNLABORED. BOWEL SOUNDS +. ABD SOFT, NON TENDER. PULSES STRONG AND EQUAL THROUGHOUT. PT WITH NOTED SKIN BREAKDOWN W/ SCABBING ON L. FOOT. SEE CHART FOR PICTURES. NA 123 ON 1200 DRAW, AWAITING [address], PT WITH GOOD URINARY OUTPUT. ONE BM. LR GTT @75ML IN L. AC. PHYSICAL THERAPY IN THIS AFTERNOON, ABLE TO GET PT INTO CHAIR VIA ONE PERSON ASSIST. PT REPOS Q2 TO MAINTAIN SKIN INTEGRITY. CBG STABLE. BED IN LOW, CALL LIGHT IN REACH, WILL REPORT TO ONCOMING RN.
[2023-10-24 20:06] VITALS: BP 154/63
[2023-10-25 00:32] VITALS: BP 156/59
[2023-10-25 04:00] VITALS: BP 156/77
[2023-10-25 04:13] LABS: BASOPHILS ABSOLUTE AUTO 0.46 K/mm3 (0.00-0.23); BASOPHILS PERCENT AUTO 2 % (0-2); EOSINOPHILS ABSOLUTE AUTO 0.09 K/mm3 (0.00-0.68); EOSINOPHILS PERCENT AUTO 1 % (0-6); Hematocrit 36.1 % (33.0-51.0); Hemoglobin 12.2 g/dL (11.5-16.0); IMMATURE GRAN ABSOLUTE AUTO 0.91 K/mm3 (0.00-0.10); IMMATURE GRAN PERCENT AUTO 5 % (0-1); LYMPHOCYTES ABSOLUTE AUTO 1.82 K/mm3 (0.84-5.20); LYMPHOCYTES PERCENT AUTO 9 % (21-46); MONOCYTES ABSOLUTE AUTO 1.41 K/mm3 (0.16-1.47); MONOCYTES PERCENT AUTO 7 % (4-13); Mean Corpuscular HGB 27.5 pg (26.0-34.0); Mean Corpuscular HGB Conc 33.8 g/dL (31.5-36.5); Mean Corpuscular Volume 81 fL (80-100); Mean Platelet Volume 10.4 fL (9.1-12.4); NEUTROPHILS ABSOLUTE AUTO 15.15 K/mm3 (1.96-9.15); NEUTROPHILS PERCENT AUTO 76 % (41-73); Platelet Count 352 K/mm3 (150-400); RDW Coefficient Variation 12.5 % (11.7-14.2); RDW Standard Deviation 37.2 fL (35.1-46.3); Red Blood Cell Count 4.44 M/mm3 (3.80-5.20); White Blood Cell Count 19.84 K/mm3 (4.00-11.30)
[2023-10-25 04:37] LABS: Bun/Creatinine Ratio 20.3 (12.0-20.0); Calcium, Blood 8.5 mg/dL (8.5-10.1); Creatinine, Blood 0.49 mg/dL (0.40-1.00)
--- NOTE | 2023-10-25 05:46 | NUR ---
SHIFT SUMMARY ASSUMED CARE OF PT AT 1900. PT IS A/OX3-4. PT WAS SLIGHTLY FORGETFUL THIS AM BUT WAS REORIENTED. LUNG SOUNDS CLEAR. HEART SOUNDS REGULAR. PT C/O NUMBNESS IN LEGS, "LIKE CRAMPING" SHE SAID, BUT IT WENT AWAY. OTHER THAN THAT PT SLEPT T/O THE NOC. WOUND ON PT FOOT CLEANED AND REDRESSED.
[2023-10-25 07:23] VITALS: BP 190/80
[2023-10-25 10:13] VITALS: BP 153/66
[2023-10-25 15:07] VITALS: BP 143/70
--- NOTE | 2023-10-25 17:21 | NUR ---
SHIFT SUMMARY: PT REMAINS ALERT AND ORIENTED X2-3. ABLE TO FOLLOW COMMANDS AND MAKE NEEDS KNOWN. HX OF DEMENTIA. SLOW TO RESPOND AT TIMES. STRENGTH WEAK, EQUAL BILATERALLY. BP AND HR STABLE. AFEBRILE. SPO2 >98% ON ROOM AIR. RESPIRATIONS EVEN AND UNLABORED. LUNG SOUNDS CLEAR. ABD SOFT, NON TENDER, BOWEL SOUNDS +. PULSES STRONG AND EQUAL THROUGHOU. PT MEDICATED X1 FOR PAIN, SEE EMAR. PUREWICK IN PLACE WITH GOOD URINARY OUTPUT. NO BM. PT REPOS TO MAINTAIN SKIN INTEGRITY THROUGHOUT SHIFT. NA+ 119 THIS AFTERNOON, CRITICAL VALUE NOTIFIED TO MD, NEW ORDERS RECEIVED. NS GTT @75ML/HR IN L.AC. CBG STABLE. BED ALARM ON FOR SAFETY, BED IN LOW, CALL LIGHT IN REACH, WILL REPORT TO ONCOMING RN.
[2023-10-25 20:19] VITALS: BP 160/95
--- NOTE | 2023-10-25 23:38 | NUR ---
PT TRANSFER REPORT GIVEN TO АЛЕКСАНДР ALCAZAR ON MEDICAL FLOOR. PT WAS SLEEPING ON TRASER. NO NEW COMPLAINTS. PT LEFT FLOOR AT 2330.
[2023-10-26] MEDS ORDERED: ATOR40TA PO (01:09)
[2023-10-26] MEDS ORDERED: Primidone50 MG PO (01:16)
[2023-10-26] MEDS ORDERED: METFORMIN HCL500 M2 PO (01:16)
[2023-10-26] MEDS ORDERED: PROP10 PO ×2 (01:17→01:18)
[2023-10-26 05:22] VITALS: BP 181/68
[2023-10-26 05:26] LABS: BASOPHILS ABSOLUTE AUTO 0.39 K/mm3 (0.00-0.23); BASOPHILS PERCENT AUTO 2 % (0-2); EOSINOPHILS ABSOLUTE AUTO 0.03 K/mm3 (0.00-0.68); EOSINOPHILS PERCENT AUTO 0 % (0-6); Hemoglobin 12.8 g/dL (11.5-16.0); IMMATURE GRAN ABSOLUTE AUTO 0.68 K/mm3 (0.00-0.10); IMMATURE GRAN PERCENT AUTO 4 % (0-1); LYMPHOCYTES ABSOLUTE AUTO 1.55 K/mm3 (0.84-5.20); LYMPHOCYTES PERCENT AUTO 9 % (21-46); MONOCYTES ABSOLUTE AUTO 1.33 K/mm3 (0.16-1.47); MONOCYTES PERCENT AUTO 7 % (4-13); Mean Corpuscular HGB 27.6 pg (26.0-34.0); Mean Corpuscular HGB Conc 34.6 g/dL (31.5-36.5); Mean Corpuscular Volume 80 fL (80-100); Mean Platelet Volume 10.1 fL (9.1-12.4); NEUTROPHILS ABSOLUTE AUTO 13.96 K/mm3 (1.96-9.15); NEUTROPHILS PERCENT AUTO 78 % (41-73); Platelet Count 343 K/mm3 (150-400); RDW Coefficient Variation 12.5 % (11.7-14.2); RDW Standard Deviation 35.8 fL (35.1-46.3); Red Blood Cell Count 4.63 M/mm3 (3.80-5.20); White Blood Cell Count 17.94 K/mm3 (4.00-11.30)
[2023-10-26 06:02] LABS: Bun/Creatinine Ratio 17.3 (12.0-20.0); Calcium, Blood 8.6 mg/dL (8.5-10.1); Creatinine, Blood 0.46 mg/dL (0.40-1.00); Potassium, Blood 3.7 mmol/L (3.5-5.5)
--- NOTE | 2023-10-26 06:17 | NUR ---
T/F AND SUMMARY: REPORT RECIEVED FROM ANGELA ZAPATA AND PT T/F TO ROOM 343 AT 2330 VIA [employer]. SHE WAS ORIENTED TO NEW ROOM AND CALL SYSTEM. SHIFT ASSESSMENT WAS REVIEWED AND THIS RN AGREES TO FINDINGS. PT IS A/O BUT HAS SLOW SPEECH AND DELAYED RESPONSES. SHE SPECIFIES NEEDS AND ANSWERS Q'S APPROPRIATE. SODIUM LEVEL CONT'S TO FLUCTUATE BUT IS 12O THIS AM W/NS INFUSING AT 75 ML/HR AND SODIUM TABLETS BEING RECIEVED. SHE DENIED PAIN AND ALL OTHER COMPLAINTS. PT OBSERVED STRETCHING AND REPOSITIONING SELF GRADUALLY IN BED. PUREWIC IS IN PLACE FOR SBD PREVENTION AND INCONTINENCE. SHE IS W/C BOUND AT BASELINE BUT TYPICALLY IS ABLE TO STAND AND PIVOT T/F W/ASSIST. NO ACUTE CHANGES, VSS AND AFEBRILE. WCTM AND REPORT TO DAY RN.
[2023-10-26 08:12] VITALS: BP 182/75
[2023-10-26 10:46] LABS: Uric Acid, Blood 2.3 mg/dL (2.6-6.0)
[2023-10-26 13:03] VITALS: BP 164/68
[2023-10-26 15:27] LABS: Potassium, Blood 4.1 mmol/L (3.5-5.5)
--- NOTE | 2023-10-26 15:58 | NUR ---
BLADDER SCANNED PT PER MD ORDER. PT'S ATTENDS ARE SOAKED WITH URINE, PT IS INCONTINENT, BLADDER SCAN SHOWED URNIE REMAINING IN BLADDER IS >500, 576MLS. PLACED CALL TO MD, ORDERES RECEIVED FOR F/C, LABS TO CHECK NA & K & TO GIVE EXTRA DOSES OF NA TABS. LAB DRAW FROM 1500 DRAW SHOWED NA DROPPED TO 118, K 4.1. MD NOTIFIED & AWARE. PT IS MORE AWAKE AND RESPONDING APPROPRIATELY ALTHOUGH IS CONFUSED ABOUT WHERE SHE IS AND DATE & TIME.
[2023-10-26 16:18] VITALS: BP 161/77
[2023-10-26 16:50] LABS: Source, Urine Foley catheter
[2023-10-26 16:53] LABS: Appearance, Urine Clear (Clear); Bilirubin, Urine Neg (Neg); Blood, Urine Neg (Neg); Glucose Qualitative, Urine Neg (Neg); Ketones, Urine Neg (Neg); Leukocyte Esterase, Urine 2+ (Neg); Nitrite, Urine Neg (Neg); Protein, Urine Neg (Neg); Specific Gravity, Urine 1.015 (1.003-1.022); Urobilinogen, Urine NORM (Normal)
[2023-10-26 17:10] LABS: Color, Urine Pale Yellow (P-Yellow)
[2023-10-26 17:12] LABS: Bacteria Many /hpf; Red Blood Cells, Urine 0-2 /hpf (0-2); Squamous Epithelial Cells Few /hpf (Few)
--- NOTE | 2023-10-26 17:40 | NUR ---
SHIFT SUMMARY A&O X 2, IS CONFUSED, FOLLOWS DIRECTIONS AND IS PLEASANT & COOPERATIVE WITH ALL CARE. SLOW TO RESPOND BUT NOW MAINTAINS EYE CONTACT AND WILL ANSWER QUESTIONS APPROPRIATELY. WHEN NOT BEING STIMULATED WITH ACTIVITY IN THE ROOM PT NODS OFF EASILY. 14FR F/C INSERTED PER PROTOCOL & PER MD ORDERS WITH IMMEDIATE RETURN OF 500MLS CLEAR YELLOW URINE VISUALIZED IN TUBE. UA COLLECTED & SENT. PT ALSO HAD SOAKED ATTENDS ON. CHANGED AND CLEANED PT. PT BRITTANY ALL WELL.
[2023-10-26 18:27] LABS: Potassium, Blood 3.8 mmol/L (3.5-5.5)
--- NOTE | 2023-10-26 18:46 | NUR ---
PLACED CALL TO DR. MURPHY TO NOTIFY OF MOST RECENT NA & K LAB RESULTS. NA 121 & K 3.8. LVM.
--- NOTE | 2023-10-26 19:43 | NUR ---
LATE ENTRY 1844: PLACED CALL TO DR. MURPHY TO NOTIFY OF MOST RECENT LAB RESULTS OF NA 121 & K 3.8. ORDERS RECEIVED TO ADD TAB OF 1 GM OF NA TO BE ADDED TO LATE DOSE OF 1GM THAT WAS DUE AT 1700 FOR A TOTAL OF 2GMS NA GIVEN BY THIS RN & IV LASIX 20MG TO BE GIVEN AT 2100. NOC RN AWARE.
[2023-10-26 20:07] VITALS: BP 158/74
[2023-10-27 03:20] VITALS: BP 141/84
[2023-10-27 05:15] LABS: Hematocrit 35.9 % (33.0-51.0); Hemoglobin 12.3 g/dL (11.5-16.0); Mean Corpuscular HGB 27.5 pg (26.0-34.0); Mean Corpuscular HGB Conc 34.3 g/dL (31.5-36.5); Mean Corpuscular Volume 80 fL (80-100); Mean Platelet Volume 10.5 fL (9.1-12.4); Platelet Count 308 K/mm3 (150-400); RDW Coefficient Variation 12.5 % (11.7-14.2); RDW Standard Deviation 36.2 fL (35.1-46.3); Red Blood Cell Count 4.47 M/mm3 (3.80-5.20)
[2023-10-27 05:22] LABS: BASOPHILS ABSOLUTE AUTO 0.39 K/mm3 (0.00-0.23); BASOPHILS PERCENT AUTO 2 % (0-2); EOSINOPHILS ABSOLUTE AUTO 0.06 K/mm3 (0.00-0.68); EOSINOPHILS PERCENT AUTO 0 % (0-6); IMMATURE GRAN ABSOLUTE AUTO 0.78 K/mm3 (0.00-0.10); IMMATURE GRAN PERCENT AUTO 4 % (0-1); LYMPHOCYTES ABSOLUTE AUTO 1.46 K/mm3 (0.84-5.20); LYMPHOCYTES PERCENT AUTO 8 % (21-46); MONOCYTES ABSOLUTE AUTO 1.53 K/mm3 (0.16-1.47); MONOCYTES PERCENT AUTO 8 % (4-13); NEUTROPHILS ABSOLUTE AUTO 15.23 K/mm3 (1.96-9.15); NEUTROPHILS PERCENT AUTO 78 % (41-73); White Blood Cell Count 19.45 K/mm3 (4.00-11.30)
[2023-10-27 06:04] LABS: Albumin, Blood 2.8 g/dL (3.4-5.0); Anion Gap 7 mmol/L (6-16); Blood Urea Nitrogen 11 mg/dL (8-24); Bun/Creatinine Ratio 21.7 (12.0-20.0); CO2, Blood 29 mmol/L (21-32); Calcium, Blood 8.7 mg/dL (8.5-10.1); Chloride, Blood 85 mmol/L (98-108); Creatinine, Blood 0.51 mg/dL (0.40-1.00); Glomerular Filtration Rate 95 (60-); Glucose, Blood 161 mg/dL (70-99); Magnesium, Blood 1.9 mg/dL (1.6-2.4); Potassium, Blood 3.5 mmol/L (3.5-5.5); Sodium, Blood 121 mmol/L (136-145)
--- NOTE | 2023-10-27 07:04 | NUR ---
SUMMARY: PT A/OX3 AND ANSWERS Q'S APPROPRIATELY BUT HAS DELAYED RESPONSES AND SLOW SPEECH. SHE'S W/C BOUND AT BASELINE AND TYPICALLY ABLE TO PIVOT T/F W/ASSIST BUT PHYS TX CONSULTING FOR INCREASED WEAKNESS. SHE'S FIGITY AND REPOSITIONS HERSELF OFTEN IN BED BUT ASSIST PROVIDED PRN. OCTAVIANO IS PATENT AND DRAINING AND IS CONSULTING FOR ONGOING HYPONATREMIA. X1 IV LASIX AND SCHEDULED NACL TABLET RECEIVED PER EMAR, AM LABS PENDING. NO ACUTE CHANGES, VSS/AFEBRILE. WCTM AND REPORT TO DAY RN.
[2023-10-27 07:32] VITALS: BP 149/60
[2023-10-27 16:34] VITALS: BP 137/53
--- NOTE | 2023-10-27 16:54 | NUR ---
SUMMARY- PT ALERT TO SELF AND FAMILY. PT HAS A DELAYED RESPONSE WHEN ASKED QUESTIONS, HAS A BLANK STARE, BUT ABLE TO ANSWER SIMPLE QUESTIONS. PT UNABLE TO FEED SELF RELATED TO LACK OF COORDINATION. HAS A TREMOR. FED MEALS, TOLERATES ABOUT 50%. WORKED WITH PHYSICAL THERAPY, UNABLE TO GET VERY FAR, NOT EVEN TO EDGE OF BED. BRUMFIELD CLEAR YELLOW. BLOOD SUGARS STABLE. VSS. CONSULT WITH DR MURPHY, ADJUSTING MEDS. NA STARTED AT 121 THIS AM, UP TO 124 AT 1500. WILL REPORT TO NOC RN
[2023-10-27 19:52] VITALS: BP 130/60
[2023-10-28 03:23] VITALS: BP 139/48
--- NOTE | 2023-10-28 04:41 | NUR ---
Shift Summary Patient was awake and alert at the beginning of the shift. No complaints voiced. Respirations regular and unlabored. Lung sounds clear. Bowel sounds active. Skin warm and dry. Ortega catheter in place and draining yellow urine. Patient took her pills one at a time. Tolerated well. IV intact to right forearm and flushing without difficulty. Call light in reach. Bed in low position with alarm on. Resting quietyly. No distress noted.
[2023-10-28 06:08] LABS: BASOPHILS ABSOLUTE AUTO 0.32 K/mm3 (0.00-0.23); BASOPHILS PERCENT AUTO 1 % (0-2); EOSINOPHILS ABSOLUTE AUTO 0.05 K/mm3 (0.00-0.68); EOSINOPHILS PERCENT AUTO 0 % (0-6); Hematocrit 31.7 % (33.0-51.0); Hemoglobin 10.7 g/dL (11.5-16.0); IMMATURE GRAN ABSOLUTE AUTO 0.93 K/mm3 (0.00-0.10); IMMATURE GRAN PERCENT AUTO 4 % (0-1); LYMPHOCYTES PERCENT AUTO 7 % (21-46); MONOCYTES ABSOLUTE AUTO 2.03 K/mm3 (0.16-1.47); MONOCYTES PERCENT AUTO 9 % (4-13); Mean Corpuscular HGB 27.8 pg (26.0-34.0); Mean Corpuscular HGB Conc 33.8 g/dL (31.5-36.5); Mean Corpuscular Volume 82 fL (80-100); Mean Platelet Volume 10.8 fL (9.1-12.4); NEUTROPHILS ABSOLUTE AUTO 18.44 K/mm3 (1.96-9.15); NEUTROPHILS PERCENT AUTO 79 % (41-73); Platelet Count 296 K/mm3 (150-400); RDW Coefficient Variation 12.9 % (11.7-14.2); RDW Standard Deviation 38.7 fL (35.1-46.3); Red Blood Cell Count 3.85 M/mm3 (3.80-5.20); White Blood Cell Count 23.47 K/mm3 (4.00-11.30)
[2023-10-28 06:35] LABS: Albumin, Blood 2.5 g/dL (3.4-5.0); Anion Gap 9 mmol/L (6-16); Blood Urea Nitrogen 29 mg/dL (8-24); Bun/Creatinine Ratio 52.5 (12.0-20.0); CO2, Blood 26 mmol/L (21-32); Calcium, Blood 8.7 mg/dL (8.5-10.1); Chloride, Blood 91 mmol/L (98-108); Creatinine, Blood 0.55 mg/dL (0.40-1.00); Glomerular Filtration Rate 93 (60-); Glucose, Blood 133 mg/dL (70-99); Magnesium, Blood 1.9 mg/dL (1.6-2.4); Phosphorus, Blood 3.7 mg/dL (2.5-4.9); Potassium, Blood 3.9 mmol/L (3.5-5.5); Sodium, Blood 126 mmol/L (136-145)
[2023-10-28 10:14] VITALS: BP 131/56
--- NOTE | 2023-10-28 10:26 | NUR ---
Patient gave confirmation for student to help perform care.
[2023-10-28 15:37] VITALS: BP 129/48
--- NOTE | 2023-10-28 16:05 | NUR ---
1200 TODAY, RN AND LIEUTENANT GOVERNOR TURNED PT, ROUTINE TURN, NOTED XLG HEMATOMA TO R ABD. HARD, INDURATED 3-4 INCHES, VERY PAINFUL. CALL PLACED TO DR OCAMPO, ORDER PLACED FOR ABD/PELVIC CT. PT TAKEN DOWN IN [facility] FOR SCAN, AWAITING RESULTS
[2023-10-28 19:28] VITALS: BP 113/49
--- NOTE | 2023-10-28 20:10 | NUR ---
SUMMARY- PT ALERT TO SELF, PLACE, YEAR AND PRESIDENT DARIUS. PT FOLLOWS COMMANDS TO REGISTERED NURSE STEP DOWN, PEARLA. PT HAS LONG DELAY IN SPEECH AND FREQ HAS A DISTANT GAZE. ANSWERS 1-2 WORD PHRASES, BUT AT TIMES SPEEKS A FULL AND MEANINGFUL SENTENCE- PT HAS GROSS MOTOR TREMOR AND POOR COORDINATION. UNABLE TO FEED SELF. NEEDS ASSIST TO EAT AND DRINK. COMPLYING WITH 1L FLUID RESTRICTION. SODIUM LEVELS SLOWLY IMPROVING. FALL A FEW WEEKS AGO LEFT BRUISING ON THE L SHOULDER AND L SIDE. PT WAS COMPLAINING OF L HIP PAIN, RN ASSESSED AND FOUND LG HEMATOMA OF L ABD. CALLED DR OCAMPO, ORDER FOR ABD CT. APPLIED HEAT PAD TO AREA. MEDICATED WITH TYLENOL. NELLI BUCIO'Arthur. SPOKE WITH SON IN [place] AND UPDATED ON MOMS CONDITION WITH HER PERMISSION. PT CONT WITH BRUMFIELD, CLEAR YELLOW. BEDREST FOR NOW WITH ROUTINE TURNS. HEELS RED, SOFT BUT BLANCHABLE. KEPT FLOATED TODAY. PHYSICAL THERAPY HAD TO DELAY TX RELATED TO HEMATOMA AND PENDING CT RESULTS. REPORTED TO CASIE ZABALA RN
[2023-10-29 03:46] VITALS: BP 152/53
[2023-10-29 05:13] LABS: BASOPHILS ABSOLUTE AUTO 0.32 K/mm3 (0.00-0.23); BASOPHILS PERCENT AUTO 1 % (0-2); EOSINOPHILS ABSOLUTE AUTO 0.01 K/mm3 (0.00-0.68); EOSINOPHILS PERCENT AUTO 0 % (0-6); Hematocrit 28.5 % (33.0-51.0); Hemoglobin 9.6 g/dL (11.5-16.0); IMMATURE GRAN ABSOLUTE AUTO 0.81 K/mm3 (0.00-0.10); IMMATURE GRAN PERCENT AUTO 3 % (0-1); LYMPHOCYTES ABSOLUTE AUTO 1.51 K/mm3 (0.84-5.20); LYMPHOCYTES PERCENT AUTO 6 % (21-46); MONOCYTES ABSOLUTE AUTO 2.15 K/mm3 (0.16-1.47); MONOCYTES PERCENT AUTO 9 % (4-13); Mean Corpuscular HGB 27.9 pg (26.0-34.0); Mean Corpuscular HGB Conc 33.7 g/dL (31.5-36.5); Mean Corpuscular Volume 83 fL (80-100); Mean Platelet Volume 10.8 fL (9.1-12.4); NEUTROPHILS ABSOLUTE AUTO 19.55 K/mm3 (1.96-9.15); NEUTROPHILS PERCENT AUTO 80 % (41-73); Platelet Count 306 K/mm3 (150-400); RDW Coefficient Variation 13.2 % (11.7-14.2); Red Blood Cell Count 3.44 M/mm3 (3.80-5.20); White Blood Cell Count 24.35 K/mm3 (4.00-11.30)
[2023-10-29 05:57] LABS: Magnesium, Blood 1.9 mg/dL (1.6-2.4)
[2023-10-29 05:58] LABS: Albumin, Blood 2.6 g/dL (3.4-5.0); Anion Gap 7 mmol/L (6-16); Blood Urea Nitrogen 32 mg/dL (8-24); Bun/Creatinine Ratio 57.1 (12.0-20.0); CO2, Blood 29 mmol/L (21-32); Calcium, Blood 9.1 mg/dL (8.5-10.1); Chloride, Blood 95 mmol/L (98-108); Creatinine, Blood 0.56 mg/dL (0.40-1.00); Glomerular Filtration Rate 93 (60-); Glucose, Blood 181 mg/dL (70-99); Phosphorus, Blood 3.8 mg/dL (2.5-4.9); Potassium, Blood 3.9 mmol/L (3.5-5.5); Sodium, Blood 131 mmol/L (136-145)
--- NOTE | 2023-10-29 07:25 | NUR ---
Shift Summary PT AOx1 with confusion and difficulty following some directions. She stated she needed to have a BM last night, attempted to get up to BSC but pt was too weak to sit up in bed. Offered bed bond which she didn't respond to, no BM this shift. She had difficulty swallowing her sodium tablet with apple sauce, I gave the rest of her pills crushed in apple sauce except those which should not be crushed. She can still swallow a small or medium size pill with applesauce. Ortega in place and patent draining yellow urine. 1 L fluid restriction, pt had minimal fluid this shift.
[2023-10-29 07:50] VITALS: BP 131/51
[2023-10-29 16:41] VITALS: BP 137/46
[2023-10-29 16:42] VITALS: BP 135/46
--- NOTE | 2023-10-29 17:48 | NUR ---
SHIFT SUMMARY HEEL PROTECTORS APPLIED TO PT'S HEELS FOR PREVENTION THIS SHIFT. PT'S HEELS VISIBLY RED BUT BLANCHABLE THIS AM. NO OTHER ACUTE CHANGES THIS SHIFT. CALL LIGHT WITHIN REACH AND PT INTERMITTENTLY ABLE TO MAKE NEEDS KNOWN.
[2023-10-29 19:15] VITALS: BP 128/57
[2023-10-30 03:26] VITALS: BP 133/55
--- NOTE | 2023-10-30 05:24 | NUR ---
SHIFT SUMMARY: RESTING IN BED THIS SHIFT, COMPLIANT WITH 1L FLIUD RESTRICTION, A&0 X1, CONTINUES TO NEED ASSISTANCE WITH EATING, DENIES PAIN OR DISCOMFORT WHEN ASKED, C/O DRY MOUTH, LEMON SWABS GIVEN TO MOISTEN MOUTH, BRUMFIELD CATH PATENT AND DRAINING CLEAR YELLOW URINE.
[2023-10-30 05:32] LABS: BASOPHILS ABSOLUTE AUTO 0.33 K/mm3 (0.00-0.23); BASOPHILS PERCENT AUTO 2 % (0-2); EOSINOPHILS ABSOLUTE AUTO 0.02 K/mm3 (0.00-0.68); EOSINOPHILS PERCENT AUTO 0 % (0-6); Hematocrit 27.9 % (33.0-51.0); Hemoglobin 9.2 g/dL (11.5-16.0); IMMATURE GRAN PERCENT AUTO 4 % (0-1); LYMPHOCYTES ABSOLUTE AUTO 1.59 K/mm3 (0.84-5.20); LYMPHOCYTES PERCENT AUTO 7 % (21-46); MONOCYTES ABSOLUTE AUTO 1.98 K/mm3 (0.16-1.47); MONOCYTES PERCENT AUTO 9 % (4-13); Mean Corpuscular Volume 85 fL (80-100); Mean Platelet Volume 10.5 fL (9.1-12.4); NEUTROPHILS ABSOLUTE AUTO 17.87 K/mm3 (1.96-9.15); NEUTROPHILS PERCENT AUTO 79 % (41-73); Platelet Count 316 K/mm3 (150-400); RDW Coefficient Variation 13.4 % (11.7-14.2); RDW Standard Deviation 41.1 fL (35.1-46.3); Red Blood Cell Count 3.29 M/mm3 (3.80-5.20); White Blood Cell Count 22.59 K/mm3 (4.00-11.30)
[2023-10-30 06:19] LABS: Magnesium, Blood 2.1 mg/dL (1.6-2.4)
[2023-10-30 06:20] LABS: Albumin, Blood 2.5 g/dL (3.4-5.0); Anion Gap 4 mmol/L (6-16); Blood Urea Nitrogen 46 mg/dL (8-24); Bun/Creatinine Ratio 78.6 (12.0-20.0); CO2, Blood 31 mmol/L (21-32); Calcium, Blood 9.6 mg/dL (8.5-10.1); Chloride, Blood 101 mmol/L (98-108); Creatinine, Blood 0.59 mg/dL (0.40-1.00); Glomerular Filtration Rate 92 (60-); Glucose, Blood 153 mg/dL (70-99); Phosphorus, Blood 3.8 mg/dL (2.5-4.9); Potassium, Blood 3.7 mmol/L (3.5-5.5); Sodium, Blood 136 mmol/L (136-145)
[2023-10-30 07:17] VITALS: BP 138/59
[2023-10-30 17:06] VITALS: BP 133/48
--- NOTE | 2023-10-30 17:35 | NUR ---
SHIFT SUMMARY PT MENTATION IMPROVED THIS SHIFT. PT A&OX2-3 AT TIMES, BUT STILL DOES REQUIRE REORIENTATION. PT UP IN THE CHAIR AND WORKED W/ PHYSICAL THERAPY THIS SHIFT. PT AMB W/ MINIMAL ASSIST TO THE CHAIR AND BACK INTO BED. NO OTHER ACUTE CHANGES. CALL LIGHT WITHIN REACH AND PT ABLE TO MAKE NEEDS KNOWN.
[2023-10-30 19:34] VITALS: BP 147/55
[2023-10-31 02:58] VITALS: BP 163/65
--- NOTE | 2023-10-31 04:19 | NUR ---
END OF SHIFT SUMMARY PT A&O x3, VSS, NO FEVER THIS MORNING WITH VS CHECK. PT ON RA, RESP RATE EVEN AND UNLABORED. PT ADMITTED FOR HYPONATREMIA, WHICH HAS RESOLVED. PT NEEDS ASSISTANCE WITH EATING MEALS. PLAN IS TO FIND A SNF FOR PLACEMENT D/T PT's INCREASED NEEDS FOR CARE. PRN APAP GIVEN FOR LOW GRADE FEVER OF 100.1 F. RECHECK FOR TEMPERATURE WAS 98.5 AT 0258. PT SLEPT WELL OVERNIGHT. NO C/O PAIN OR DISCOMFORT. BRUMFIELD CATHETER PATENT, DRAINING WELL, CLEAR STRAW YELLOW IN COLOR. PT COMPLIANT WITH 1L FLUID RESTRICTIONS PER 24 HR. PT CALLS APPROPRIATELY FOR ASSISTANCE. PT 1P STAND PIVOT FOR TRANSFERS. CALL LIGHT WITHIN REACH, WCTM.
[2023-10-31 06:35] LABS: BASOPHILS ABSOLUTE AUTO 0.39 K/mm3 (0.00-0.23); BASOPHILS PERCENT AUTO 2 % (0-2); EOSINOPHILS ABSOLUTE AUTO 0.04 K/mm3 (0.00-0.68); EOSINOPHILS PERCENT AUTO 0 % (0-6); Hematocrit 28.2 % (33.0-51.0); IMMATURE GRAN ABSOLUTE AUTO 0.86 K/mm3 (0.00-0.10); IMMATURE GRAN PERCENT AUTO 3 % (0-1); LYMPHOCYTES ABSOLUTE AUTO 1.92 K/mm3 (0.84-5.20); LYMPHOCYTES PERCENT AUTO 7 % (21-46); MONOCYTES ABSOLUTE AUTO 1.86 K/mm3 (0.16-1.47); MONOCYTES PERCENT AUTO 7 % (4-13); Mean Corpuscular HGB 27.7 pg (26.0-34.0); Mean Corpuscular HGB Conc 31.9 g/dL (31.5-36.5); Mean Corpuscular Volume 87 fL (80-100); Mean Platelet Volume 11.2 fL (9.1-12.4); NEUTROPHILS ABSOLUTE AUTO 20.87 K/mm3 (1.96-9.15); NEUTROPHILS PERCENT AUTO 80 % (41-73); Platelet Count 335 K/mm3 (150-400); RDW Coefficient Variation 13.4 % (11.7-14.2); RDW Standard Deviation 42.5 fL (35.1-46.3); Red Blood Cell Count 3.25 M/mm3 (3.80-5.20); White Blood Cell Count 25.94 K/mm3 (4.00-11.30)
[2023-10-31 07:01] LABS: Albumin, Blood 2.5 g/dL (3.4-5.0); Anion Gap 4 mmol/L (6-16); Blood Urea Nitrogen 44 mg/dL (8-24); Bun/Creatinine Ratio 77.5 (12.0-20.0); CO2, Blood 32 mmol/L (21-32); Calcium, Blood 9.5 mg/dL (8.5-10.1); Chloride, Blood 104 mmol/L (98-108); Creatinine, Blood 0.57 mg/dL (0.40-1.00); Glomerular Filtration Rate 92 (60-); Glucose, Blood 154 mg/dL (70-99); Magnesium, Blood 2.1 mg/dL (1.6-2.4); Phosphorus, Blood 3.7 mg/dL (2.5-4.9); Potassium, Blood 3.8 mmol/L (3.5-5.5); Sodium, Blood 140 mmol/L (136-145)
[2023-10-31 07:09] VITALS: BP 158/63
--- NOTE | 2023-10-31 09:00 | NUR ---
Pt laying in bed awake a/ox3, does repeat questions, pleasant and cooperative with care, follows commands well, denies pain, states she's thirsty, pt has a mouth tremor, and is on swallow precautions, gave po meds with applesauce, has an occ cough, lungs are dim t/o, resp even and unlabored, on r/a, hrr, murmur noted, no edema noted, ppp+1, cap refill <3 sec, vs stable, afebrile, iv lfa, site is clear and patent, btx4, abd flat soft nontender, voids via huang cath for retention at this time, with clear yellow urine, skin c/w/d, chloe orosco, call light in reach.
--- NOTE | 2023-10-31 13:16 | NUR ---
pt up to chair with therapy, was assisted with her meal, no further changes, report given to Fanny ALCAZAR. call light in reach.
[2023-10-31 15:49] VITALS: BP 130/44
--- NOTE | 2023-10-31 17:44 | NUR ---
SUMMARY- PT AAO2-3, X2 MAX ASSIST WITH GAIT BELT TO BSC/RECLINER. PT DENIES PAIN. CALM AND COOPERATIVE. PT NEEDS CONSTANT REMINDERS FOR FLUIDS RESTRICTION.
[2023-10-31 20:13] VITALS: BP 119/61
[2023-11-01 02:58] VITALS: BP 140/53
--- NOTE | 2023-11-01 04:07 | NUR ---
SHIFT SUMMARY PT A&O X3, COOPERATIVE WITH CARE. CONFUSED UPON WAKENING AND TAKES SOME TIME TO REORIENT. BRUMFIELD IS PATENT AND DRAINING YELLOW URINE. CATH CARE PROVIDED, ATTENDS C/D. PT IS ON FLUID RESTRICTION AND NEEDS CONSTANT REMINDERS REGARDING FLUID INTAKE. BS @ DINNER 172. NO ACUTE CAHNGES OVERNIGHT. BED KEPT IN LOWEST POSITION WITH CALL LIGHT WITHIN REACH. PT KNOWS HOW TO CALL APPROPRAITELY. WILL CONTINUE TO MONITOR.
[2023-11-01 06:36] LABS: Hematocrit 28.7 % (33.0-51.0); Hemoglobin 8.9 g/dL (11.5-16.0); Mean Corpuscular HGB 27.1 pg (26.0-34.0); Mean Corpuscular Volume 88 fL (80-100); Mean Platelet Volume 11.5 fL (9.1-12.4); Platelet Count 347 K/mm3 (150-400); RDW Coefficient Variation 13.5 % (11.7-14.2); RDW Standard Deviation 43.3 fL (35.1-46.3); Red Blood Cell Count 3.28 M/mm3 (3.80-5.20); White Blood Cell Count 25.75 K/mm3 (4.00-11.30)
[2023-11-01 07:01] LABS: Albumin, Blood 2.4 g/dL (3.4-5.0); Anion Gap 5 mmol/L (6-16); Blood Urea Nitrogen 37 mg/dL (8-24); Bun/Creatinine Ratio 61.8 (12.0-20.0); CO2, Blood 29 mmol/L (21-32); Calcium, Blood 9.5 mg/dL (8.5-10.1); Chloride, Blood 104 mmol/L (98-108); Glomerular Filtration Rate 91 (60-); Glucose, Blood 150 mg/dL (70-99); Magnesium, Blood 1.9 mg/dL (1.6-2.4); Phosphorus, Blood 3.6 mg/dL (2.5-4.9); Sodium, Blood 138 mmol/L (136-145)
[2023-11-01 07:58] VITALS: BP 118/60
[2023-11-01 08:49] LABS: BASOPHILS PERCENT MAN 0 % (0-2); EOSINOPHILS ABSOLUTE MAN 0.25 K/mm3 (0.00-0.68); EOSINOPHILS PERCENT MAN 1 % (0-6); LYMPHOCYTES ABSOLUTE MAN 1.03 K/mm3 (0.84-5.20); LYMPHOCYTES PERCENT MAN 4 % (21-46); MONOCYTES PERCENT MAN 7 % (4-13); NEUTROPHILS ABSOLUTE MAN 22.66 K/mm3 (1.96-9.15); SEG NEUTROPHILS PERCENT MAN 88 % (41-73); TOTAL CELLS COUNTED 100
[2023-11-01 15:36] VITALS: BP 133/50
--- NOTE | 2023-11-01 17:54 | NUR ---
SHIFT SUMMARY: PT IS A 77 YEAR OLD FEMALE HERE FOR ACUTE RENAL INSUFFICIENCY/HYPONATREMIA. HER SODIUM LEVELS HAVE IMPROVED AND ARE NOW WITHIN NORMAL RANGE. EVALUTED BY DR. MURPHY TODAY. DR. OCAMPO VERBALLY CHANGED FLUID RESTRICTION ORDERS TO 1500; ORDER UPDATED. SHE HAS BEEN WEAK THROUGHOUT THE SHIFT ATTEMPTING MULTIPLE TIMES TO GET THE PATIENT UP WITH 2 PERSON ASSIST/GAIT BELT PER PT RECOMMENDATIONS. SHE IS SLOWLY ABLE TO GET HERSELF TO THE SIDE OF THE BED WITH ASSISTANCE; HAS DIFFICULTY SITTING UP (STARTS LEANING BACK) AND WHEN STANDING IS WEAK AND IS UNABLE TO PIVOT/MAKE STEPS TO BEDSIDE COMMODE/CHAIR AND QUICKLY NEEDS TO SIT BACK DOWN. SHE IS IN BED, CALL LIGHT WITHIN REACH, NO SIGNS OR SYMPTOMS OF DISTRESS. PLAN OF CARE ONGOING.
--- NOTE | 2023-11-01 18:41 | NUR ---
USED SIT TO STAND TO GET PATIENT OUT OF BED ONTO BEDSIDE COMMODE AND BEDSIDE CHAIR FOR DINNER WITH GREAT BENEFIT. PATIENT TOLEREATED WELL. RECOMMEND USING SIT TO STAND UNTIL PATIENT IS ABLE TO STAND SECURELY ON HER OWN WITHOUT RISK OF FALLING.
[2023-11-01 20:00] VITALS: BP 125/57
[2023-11-02 04:03] VITALS: BP 150/61
--- NOTE | 2023-11-02 04:19 | NUR ---
SHIFT SUMMARY PATIENT HAD NO ACUTE CHANGES. AXOX 3 AND SLOW TO RESPOND. USED SIT TO STAND TRANSFER FROM CHAIR TO BACK INTO BED. TAKES MEDICATION WHOLE X ONE EACH. DENIES CHEST PAIN, SOB, AND N/V. VSS/AFEBRILE. BRUMFIELD PATENT AND DRAINING TO GRAVITY FOR RETENTION. FLUID RESTRICTIONS 1,500 mL. SLEPT MOST OF THE SHIFT. CALL LIGHT IN REACH. BED IN LOWEST POSITION. WILL CONTINUE TO MONITOR UNTIL DAY SHIFT NURSE ASSUMES CARE.
[2023-11-02 05:38] LABS: BASOPHILS ABSOLUTE AUTO 0.42 K/mm3 (0.00-0.23); BASOPHILS PERCENT AUTO 2 % (0-2); EOSINOPHILS ABSOLUTE AUTO 0.06 K/mm3 (0.00-0.68); EOSINOPHILS PERCENT AUTO 0 % (0-6); Hematocrit 29.6 % (33.0-51.0); Hemoglobin 9.3 g/dL (11.5-16.0); IMMATURE GRAN ABSOLUTE AUTO 0.95 K/mm3 (0.00-0.10); IMMATURE GRAN PERCENT AUTO 4 % (0-1); LYMPHOCYTES ABSOLUTE AUTO 1.74 K/mm3 (0.84-5.20); LYMPHOCYTES PERCENT AUTO 8 % (21-46); MONOCYTES ABSOLUTE AUTO 1.61 K/mm3 (0.16-1.47); MONOCYTES PERCENT AUTO 7 % (4-13); Mean Corpuscular HGB 27.1 pg (26.0-34.0); Mean Corpuscular HGB Conc 31.4 g/dL (31.5-36.5); Mean Corpuscular Volume 86 fL (80-100); Mean Platelet Volume 11.5 fL (9.1-12.4); NEUTROPHILS ABSOLUTE AUTO 18.06 K/mm3 (1.96-9.15); NEUTROPHILS PERCENT AUTO 79 % (41-73); Platelet Count 430 K/mm3 (150-400); RDW Coefficient Variation 13.4 % (11.7-14.2); RDW Standard Deviation 42.2 fL (35.1-46.3); Red Blood Cell Count 3.43 M/mm3 (3.80-5.20); White Blood Cell Count 22.84 K/mm3 (4.00-11.30)
[2023-11-02 06:07] LABS: Albumin, Blood 2.4 g/dL (3.4-5.0); Anion Gap 3 mmol/L (6-16); Blood Urea Nitrogen 34 mg/dL (8-24); Bun/Creatinine Ratio 63.6 (12.0-20.0); CO2, Blood 31 mmol/L (21-32); Calcium, Blood 9.5 mg/dL (8.5-10.1); Chloride, Blood 103 mmol/L (98-108); Creatinine, Blood 0.54 mg/dL (0.40-1.00); Glomerular Filtration Rate 94 (60-); Glucose, Blood 137 mg/dL (70-99); Phosphorus, Blood 3.8 mg/dL (2.5-4.9); Sodium, Blood 137 mmol/L (136-145)
[2023-11-02 07:10] VITALS: BP 146/50
[2023-11-02 15:53] VITALS: BP 110/67
--- NOTE | 2023-11-02 17:37 | NUR ---
SHIFT SUMMARY: NO EVENTS OR CHANGES WITH PATIENT DURING THE SHIFT. NO CHANGES TO MEDICATIONS; BESIDES OMEPRAZOLE D/C'D DUE TO PATIENT REFUSING AND UNCLEAR INDICATION. AND FLUID RESTRICTION CONTINUES. DR. NORRIS CAME BY AND EVALUATED THE PATIENT'S RIGHT SIDE HEMATOMA. SEE HIS NOTE FOR FURTHER DETAILS. WE HAVE STILL BEEN USING THE SIT TO STAND TO TRANSFER PATIENT. SHE IS BED, CALL LIGHT WITHIN REACH, NO SIGNS OR SYMPTOMS OF DISTRESS. PLAN OF CARE ONGOING.
[2023-11-02 19:23] VITALS: BP 122/72
[2023-11-03 04:30] VITALS: BP 123/68
[2023-11-03 05:21] LABS: Hematocrit 26.9 % (33.0-51.0); Hemoglobin 8.5 g/dL (11.5-16.0); Mean Corpuscular HGB 27.2 pg (26.0-34.0); Mean Corpuscular HGB Conc 31.6 g/dL (31.5-36.5); Mean Corpuscular Volume 86 fL (80-100); Mean Platelet Volume 11.3 fL (9.1-12.4); Platelet Count 440 K/mm3 (150-400); RDW Coefficient Variation 13.4 % (11.7-14.2); RDW Standard Deviation 41.5 fL (35.1-46.3); Red Blood Cell Count 3.12 M/mm3 (3.80-5.20); White Blood Cell Count 23.05 K/mm3 (4.00-11.30)
[2023-11-03 05:41] LABS: Bun/Creatinine Ratio 73.6 (12.0-20.0); Calcium, Blood 8.9 mg/dL (8.5-10.1); Creatinine, Blood 0.52 mg/dL (0.40-1.00); Potassium, Blood 3.6 mmol/L (3.5-5.5)
[2023-11-03 05:48] LABS: BAND PERCENT MAN 2 % (0-8); BASOPHILS ABSOLUTE MAN 0.69 K/mm3 (0.00-0.23); BASOPHILS PERCENT MAN 3 % (0-2); EOSINOPHILS ABSOLUTE MAN 0.46 K/mm3 (0.00-0.68); EOSINOPHILS PERCENT MAN 2 % (0-6); LYMPHOCYTES ABSOLUTE MAN 1.61 K/mm3 (0.84-5.20); LYMPHOCYTES PERCENT MAN 7 % (21-46); METAMYELOCYTE ABSOLUTE MAN 0.23 K/mm3 (0.00-0.00); METAMYELOCYTE PERCENT MAN 1 % (0-0); MONOCYTES ABSOLUTE MAN 0.92 K/mm3 (0.16-1.47); MONOCYTES PERCENT MAN 4 % (4-13); MYELOCYTE ABSOLUTE MAN 0.46 K/mm3 (0.00-0.00); MYELOCYTE PERCENT MAN 2 % (0-0); NEUTROPHILS ABSOLUTE MAN 18.67 K/mm3 (1.96-9.15); SEG NEUTROPHILS PERCENT MAN 79 % (41-73); TOTAL CELLS COUNTED 100
--- NOTE | 2023-11-03 05:53 | NUR ---
SHIFT SUMMARY PT SLEPT MOST OF THE NIGHT. PT TOOK MEDS WELL. PT REQUESTING MORE FLUIDS/JELLO. PT EDUCATED THAT FLUID RESTRICTION LIMIT HAD BEEN MET FOR THE DAY SO WE COULD NOT PROVIDE ANYTHING FURTHER. PT EXPRESSED THAT [facility] IS NOT PLEASED OVER FLUID RESTRICTIONS. PT ENCOURAGED TO DICSCUSS FURTHER WITH HER PROVIDER TODAY. PT MEDICATED PER EMAR FOR HEADACHE WITH GOOD RELIEF. MO ACUTE CHANGES THIS SHIFT. 11/03/23 SHAWN HIDALGO RN
[2023-11-03 07:48] VITALS: BP 139/52
[2023-11-03 15:37] VITALS: BP 137/50
--- NOTE | 2023-11-03 16:40 | NUR ---
SHIFT SUMMARY No acute changes this shift. VSS. Denies pain. 1 person ast to recliner and bsc today. Up in chair this am. Napping in bed this pm. Formed BM today. Ortega intact with yellow output. Fluid restrictions in place. Right trunk hematoma and bruising noted. Call light in reach. Bed alarm on. Will continue to monitor this shift.
[2023-11-03 19:37] VITALS: BP 117/48
[2023-11-04 03:47] VITALS: BP 138/63
--- NOTE | 2023-11-04 04:49 | NUR ---
SHIFT SUMMARY ADMITTED FOR HYPONATREMIA. DNR CODE. PLAN IS FOR DC TO REHAB/SNF. 1500 ML FLUID [id number]. AC CBG'S. BRUMFIELD IN PLACE. SHE FELL AT HOME AND HAS A LARGE HEMATOMA ON HER RIGHT SIDE. ON RA. A&O X3, SLOW TO RESPOND. ON RA. 2 ASSIST TO BSC.
[2023-11-04 05:00] LABS: Hematocrit 27.5 % (33.0-51.0); Hemoglobin 8.7 g/dL (11.5-16.0); Mean Corpuscular HGB 27.3 pg (26.0-34.0); Mean Corpuscular HGB Conc 31.6 g/dL (31.5-36.5); Mean Corpuscular Volume 86 fL (80-100); Mean Platelet Volume 11.6 fL (9.1-12.4); Platelet Count 488 K/mm3 (150-400); RDW Coefficient Variation 13.5 % (11.7-14.2); RDW Standard Deviation 41.9 fL (35.1-46.3); Red Blood Cell Count 3.19 M/mm3 (3.80-5.20); White Blood Cell Count 24.26 K/mm3 (4.00-11.30)
[2023-11-04 05:14] LABS: Albumin, Blood 2.4 g/dL (3.4-5.0); Anion Gap 3 mmol/L (6-16); Blood Urea Nitrogen 30 mg/dL (8-24); Bun/Creatinine Ratio 56.1 (12.0-20.0); CO2, Blood 29 mmol/L (21-32); Calcium, Blood 9.1 mg/dL (8.5-10.1); Chloride, Blood 104 mmol/L (98-108); Creatinine, Blood 0.54 mg/dL (0.40-1.00); Glomerular Filtration Rate 94 (60-); Glucose, Blood 119 mg/dL (70-99); Magnesium, Blood 2.1 mg/dL (1.6-2.4); Phosphorus, Blood 3.4 mg/dL (2.5-4.9); Potassium, Blood 4.1 mmol/L (3.5-5.5); Sodium, Blood 136 mmol/L (136-145)
[2023-11-04 07:44] VITALS: BP 143/53
[2023-11-04 09:34] LABS: BASOPHILS ABSOLUTE MAN 0.48 K/mm3 (0.00-0.23); BASOPHILS PERCENT MAN 2 % (0-2); EOSINOPHILS ABSOLUTE MAN 0.24 K/mm3 (0.00-0.68); EOSINOPHILS PERCENT MAN 1 % (0-6); LYMPHOCYTES ABSOLUTE MAN 0.48 K/mm3 (0.84-5.20); LYMPHOCYTES PERCENT MAN 2 % (21-46); MONOCYTES ABSOLUTE MAN 1.94 K/mm3 (0.16-1.47); MONOCYTES PERCENT MAN 8 % (4-13); MYELOCYTE ABSOLUTE MAN 1.45 K/mm3 (0.00-0.00); MYELOCYTE PERCENT MAN 6 % (0-0); NEUTROPHILS ABSOLUTE MAN 19.65 K/mm3 (1.96-9.15); SEG NEUTROPHILS PERCENT MAN 81 % (41-73); TOTAL CELLS COUNTED 100
[2023-11-04 11:18] LABS: SARS-Cov-2 (COVID-19) PCR, MMC NEGATIVE (NEGATIVE)
[2023-11-04] MEDS ORDERED: FURO20 PO (12:56)
[2023-11-04] MEDS ORDERED: Acetaminophen650 M1 PO (12:56)
[2023-11-04] MEDS ORDERED: ARMOUR THYROID PO (12:56)
[2023-11-04] MEDS ORDERED: SODCHL1 PO (12:57)
[2023-11-04] MEDS ORDERED: VISBIOME 112.51 EACH PO (12:59)
[2023-11-04] MEDS ORDERED: UREAPRO454 GM PO (12:59)
--- NOTE | 2023-11-04 15:36 | NUR ---
DISCHARGE PT DISCHARGED TO [facility]. THIS RN CALLED REPORT TO [facility] RN. PT TRANSFERRED VIA WHEECHAIR. BELONGINGS WITH CAREGIVER, SHEELA.
== END 2023-11-04 15:36 | DRG 689 ==
LOC: ER 13:27 → PCU 20:42 → MEDS 20:42 → PCU 20:52 → MEDS 10-25 23:34 → ENPENDDIS 11-04 11:10 → MEDS 11-04 15:36
PROVIDERS: Emergency Medicine; Family Medicine; Internal Medicine Nephrology; Nurse Practitioner Acute Care; ADMIT Internal Medicine
DX: N39.0 Urinary tract infection, site not specified (principal); G92.8 Other toxic encephalopathy; E87.1 Hypo-osmolality and hyponatremia; N17.9 Acute kidney failure, unspecified; Z66 Do not resuscitate; S30.1XXA Contusion of abdominal wall, initial encounter; W19.XXXA Unspecified fall, initial encounter; F03.90 Unspecified dementia, unspecified severity, without behavioral disturbance, psychotic disturbance, mood disturbance, and anxiety; M48.02 Spinal stenosis, cervical region; M50.21 Other cervical disc displacement, high cervical region; S46.001A Unspecified injury of muscle(s) and tendon(s) of the rotator cuff of right shoulder, initial encounter; E03.9 Hypothyroidism, unspecified; R53.81 Other malaise; R33.9 Retention of urine, unspecified; F32.A Depression, unspecified; K21.9 Gastro-esophageal reflux disease without esophagitis; R13.12 Dysphagia, oropharyngeal phase; I12.9 Hypertensive chronic kidney disease with stage 1 through stage 4 chronic kidney disease, or unspecified chronic kidney disease; E11.22 Type 2 diabetes mellitus with diabetic chronic kidney disease; N18.9 Chronic kidney disease, unspecified; E88.09 Other disorders of plasma-protein metabolism, not elsewhere classified; D64.9 Anemia, unspecified; E83.42 Hypomagnesemia; Z79.84 Long term (current) use of oral hypoglycemic drugs; Z79.890 Hormone replacement therapy
CPT/HCPCS: 36415; 70450; 71045; 72125; 73030; 74176; 80048; 80053; 80069; 81001; 82533; 82947; 83605; 83735; 83880; 83930; 83935; 84132; 84145; 84295; 84300; 84550; 85014; 85018; 85025; 87040; 87077; 87086; 87186; 92526; 92610; 93005; 93010; 94760; 94762; 96361; 96365; 97110; 97162; 97530; 99285-25; A9270; J0696; J1650; J1940; J7030; J7120; P9612; U0002

== ENCOUNTER 2023-11-11 11:09 | Inpatient (IN) | payer MEDICARE ==
[~2023-11-11] VITALS: Ht 170.2 cm; Wt 76.3 kg
[~2023-11-11 11:09] MED LIST changes: +ARMOUR THYROID PO; +ATOR40TA PO; +Acetaminophen650 M1 PO; +EFFEXOR XR150 MG PO; +FURO20 PO; +LOSA50 PO; +METFORMIN HCL500 M2 PO; +NIVA THYROID60 MG PO; +OXYB5 PO; +Primidone50 MG PO; +SODCHL1 PO; +UREAPRO454 GM PO; +VISBIOME 112.51 EACH PO; +Ventolin/Prove6.7 GM INH
[2023-11-11 11:47] LABS: Hematocrit 31.4 % (33.0-51.0); Hemoglobin 10.8 g/dL (11.5-16.0); Mean Corpuscular HGB 27.1 pg (26.0-34.0); Mean Corpuscular HGB Conc 34.4 g/dL (31.5-36.5); Mean Corpuscular Volume 79 fL (80-100); RDW Coefficient Variation 13.6 % (11.7-14.2); RDW Standard Deviation 38.5 fL (35.1-46.3); Red Blood Cell Count 3.98 M/mm3 (3.80-5.20)
[2023-11-11 11:57] LABS: Albumin, Blood 2.6 g/dL (3.4-5.0); Albumin/Globulin Ratio 0.6 (0.8-1.8); Bilirubin, Total 1.5 mg/dL (0.1-1.0); Bun/Creatinine Ratio 22.2 (12.0-20.0); Calcium, Blood 8.8 mg/dL (8.5-10.1); Creatinine, Blood 0.45 mg/dL (0.40-1.00); Globulin, Blood 4.6 g/dL (2.2-4.0); Total Protein, Blood 7.2 g/dL (6.4-8.2)
[2023-11-11 11:59] LABS: BAND PERCENT MAN 2 % (0-8); BASOPHILS PERCENT MAN 0 % (0-2); EOSINOPHILS PERCENT MAN 1 % (0-6); METAMYELOCYTE PERCENT MAN 3 % (0-0); MONOCYTES PERCENT MAN 2 % (4-13); MYELOCYTE PERCENT MAN 1 % (0-0); SEG NEUTROPHILS PERCENT MAN 91 % (41-73); TOTAL CELLS COUNTED 100
[2023-11-11 12:07] LABS: EOSINOPHILS ABSOLUTE MAN 0.31 K/mm3 (0.00-0.68); METAMYELOCYTE ABSOLUTE MAN 0.95 K/mm3 (0.00-0.00); MONOCYTES ABSOLUTE MAN 0.63 K/mm3 (0.16-1.47); MYELOCYTE ABSOLUTE MAN 0.31 K/mm3 (0.00-0.00); NEUTROPHILS ABSOLUTE MAN 29.51 K/mm3 (1.96-9.15); Platelet Count 692 K/mm3 (150-400); White Blood Cell Count 31.74 K/mm3 (4.00-11.30)
[2023-11-11] MEDS ORDERED: UREAPRO454 GM PO (14:01)
[2023-11-11] MEDS ORDERED: Acetaminophen650 M1 PO (14:01)
[2023-11-11 15:10] VITALS: BP 135/59
--- NOTE | 2023-11-11 15:22 | NUR ---
NURSING PCU DAYSHIFT: Assumed care of pt at approx 1430. Arrived from ER via gurney accompanied by RNAudra Osborn to unit bed via slider sheet. 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 Intermittent rhythmic movements of UE's, raising them slightly above head before lowering them back down. Significant weakness requiring assistance w/ADL's. Skin fragile w/scattered bruising, large/firm hematoma to R abd, scattered scabs to R foot, photos taken. Denies any pain/discomfort at rest. Tele in place, NSR w/BBB, no c/o CP/pressure, SBP 135, no noted edema. L/S cta t/o, O2 sat upper 90's on RA, occ weak cough producing clear sputum. Abd SNT (other than prior mentioned area of bruising), BT+, incontinent of urine, PW and attends placed. PIV x1, s/l at arrival. After oriented to unit, NS initiated at 150mls/hr, medications, orders, and chart reviewed. Call light placed in reach, bed alarm set for safety. No s/s of acute distress at this time, pt appears to be resting comfortably w/home pillows and blanket, cont to monitor for changes.
--- NOTE | 2023-11-11 17:17 | NUR ---
NURSING PCU DAYSHIFT SUMMARY: No significant changes noted t/o the afternoon. Pt sitting up in bed having supper. Denies any current needs other than food. NS continues to infuse at 150cc/hr. Call light in reach though frequent rounding required d/t forgetfulness. Continue to monitor until rpt is given to NOC RN.
[2023-11-11 19:41] VITALS: BP 134/49
--- NOTE | 2023-11-11 22:09 | NUR ---
ASSUMPTION OF CARE AFTER RECEIVING REPORT FROM MINA RN, THIS RN ASSUMED CARE AT APPROX [id number]. PATIENT ALERT, WATCHING TV IN BED. ANSWERS ORIENTATION QUESTIONS APPROPRIATELY, IS FORGETFUL. RHYTHMIC BUE TREMORS, FREQUENTLY RAISING ARMS ABOVE HEAD. RHYTHMIC JAW MOVEMENT. IS SLOW TO RESPOND WHEN COMMUNICATING. BEDBATH AND LINEN CHANGE PERFORMED THIS EVENING. ATTENDS, PUREWICK IN PLACE FOR INCONTINENCE MANAGEMENT. VOIDING. EXTRA LARGE BM THIS EVENING. TELEMETRY SHOWING SINUS 70's. BP STABLE. DENIES CHEST PAIN, PRESSURE. IS ON ROOM AIR, SATS >90%. DENIES SHORTNESS OF BREATH AT REST. IVF INFUSING PER EMAR. BED ALARM IN PLACE, CALL LIGHT IN REACH.
[2023-11-11 23:59] VITALS: BP 159/64
[2023-11-12] VITALS (34 sets, daily range): BP systolic 121–162; BP diastolic 47–99
[2023-11-12 04:54] LABS: Bun/Creatinine Ratio 20.4 (12.0-20.0); Calcium, Blood 8.2 mg/dL (8.5-10.1); Creatinine, Blood 0.39 mg/dL (0.40-1.00); Potassium, Blood 4.1 mmol/L (3.5-5.5)
--- NOTE | 2023-11-12 05:13 | NUR ---
SHIFT SUMMARY NO ACUTE CHANGES SINCE ASSUMPTION OF CARE NOTE. NO CHANGES IN MENTATION NOTED. SODIUM LEVEL THIS MORNING IS 116. MD WHEAT NOTIFIED. RECEIVED ORDER TO INCREASE IVF RATE FROM 150ML TO 250ML. TELEMETRY SHOWING SINUS 70s. BP STABLE, SBP ELEVATED 150s. MAP >65. REMAINS ON ROOM AIR, SATS >90%. PUREWICK AND ATTENDS IN PLACE, CHANGING NEEDED TO KEEP C/D/I. VOIDING. X1 BM THIS SHIFT. REPOSITIONING REGULARLY IN BED. CALL LIGHT IN REACH. BED ALARM ON. WILL REPORT TO ONCOMING RN.
--- NOTE | 2023-11-12 09:20 | NUR ---
TRANSFER: PATIENT TRANSFERRED TO ICU 5. BEDSIDE REPORT GIVEN TO ANNE GIBBS RN. THIS MORNING PATIENT DENIED PAIN OR DISCOMFORT. PATIENT ABLE TO ANSWER YES/NO QUESTIONS AND SOMETIMES ANSWERS IN A FULL SENTENCE. PATIENT VERY SLOW TO RESPOND VERBALLY AND PHYSICALLY. PATIENT ABLE TO MOVE LIMBS INDEPENDENTLY AND WHEN REQUESTED. VERY WEAK IN BLE. LARGE, FIRM BRUISE/LUMP IN RLQ. PATIENT STABLE ON ROOM AIR. PATIENT HR IN THE 70S, SBPS IN THE 140S-150S. MAPS >65.
--- NOTE | 2023-11-12 10:00 | NUR ---
Transfer from PCU: Patient transferred from [facility] at approx 0920hr. Patient appears drowsy, but responding to verbal stimuli, oriented to self, place, date. VSS, denies pain/discomfort, SOB/dyspnea. Peripheral IV to rt forearm patent and intact. Call placed to Dr. Barnard shortly after arrival r/t large hematoma/abscess to right lower ABD. Dr. Barnard reported to bedside, received orders fro ABD CT, blood cx, and IV ABX. Also received order for PICC line r/t infusion of 3% saline. Call also placed to DR. Michelle, received order to repeat Sodium level 2hr after 3% Saline started. PICC line placed without difficulty, 3% Saline started at 1030hr, repeat Na level ordered for 1230hr. Bedside report then given to Den ALCAZAR at approx 1130hr, Den to assume care of patient for remainder of shift. Will report CT results to Dr. Barnard. Will report Sodium levels to Dr. Michelle.
--- NOTE | 2023-11-12 18:08 | NUR ---
Summary. Assumed care at approximately 1130, report received from orthotist or prosthetist. Pt resting comfortably in bed, VS stable. Hypertonic saline infusing at 25 ml/hr through PICC, infusion increased to 30 ml/hr per Dr. Michelle at 1235. Pt alert/oriented x2, vs stable. Physical assessment unchanged from am assessment. Purwick in place. See chart for further details. Will report off to nightshift RN.
[2023-11-12 19:33] LABS: Glucose, Blood 119 mg/dL (70-99)
--- NOTE | 2023-11-12 20:25 | NUR ---
INITIAL NOTE Report received, assessment performed, no acute concerns noted, repeat Na at 2100, current Na stable at 118. Patient asymptomatic but oriented x 2, able to state year, but not date. Able to state [facility]. Beleived she came in for CT of hip. VS stable, resting, call light in reach.
[2023-11-13] VITALS (20 sets, daily range): BP systolic 125–166; BP diastolic 47–114
[2023-11-13 03:52] LABS: Hematocrit 27.3 % (33.0-51.0); Hemoglobin 9.2 g/dL (11.5-16.0); Mean Corpuscular HGB Conc 33.7 g/dL (31.5-36.5); Mean Corpuscular Volume 80 fL (80-100); Mean Platelet Volume 10.9 fL (9.1-12.4); Platelet Count 640 K/mm3 (150-400); RDW Coefficient Variation 14.1 % (11.7-14.2); RDW Standard Deviation 40.5 fL (35.1-46.3); Red Blood Cell Count 3.41 M/mm3 (3.80-5.20)
[2023-11-13 03:53] LABS: White Blood Cell Count 25.85 K/mm3 (4.00-11.30)
[2023-11-13 04:14] LABS: Osmolality, Serum 249 mos/KG (275-300)
[2023-11-13 04:22] LABS: Albumin, Blood 2.3 g/dL (3.4-5.0); Anion Gap 5 mmol/L (6-16); Blood Urea Nitrogen 7 mg/dL (8-24); CO2, Blood 25 mmol/L (21-32); Calcium, Blood 7.8 mg/dL (8.5-10.1); Chloride, Blood 91 mmol/L (98-108); Creatinine, Blood 0.47 mg/dL (0.40-1.00); Glomerular Filtration Rate 97 (60-); Glucose, Blood 135 mg/dL (70-99); Magnesium, Blood 1.6 mg/dL (1.6-2.4); Phosphorus, Blood 2.5 mg/dL (2.5-4.9); Sodium, Blood 121 mmol/L (136-145); Thyroid Stimulating Hormone 0.855 uIU/mL (0.360-4.800); Uric Acid, Blood 2.7 mg/dL (2.6-6.0)
--- NOTE | 2023-11-13 06:24 | NUR ---
SHIFT SUMMARY No acute changes overnight, remained stable on NaCL, eventually d/c'd gtt and changed to PO, received dose HS. New orders written recently, most recent Na 121. VS remained stable overnight, mild hypertension, monitoring. Afebrile. Became nauseated earlier, declined dinner and took Na tablets, given "crustable" which appeared to improve nausea, no additional s/sx. Remained a/o to self, place. Sufficient output, no BM.
--- NOTE | 2023-11-13 13:43 | NUR ---
Patient transferred to room 309. Report given to medical floor RN. No acute needs at time of transfer, all personal belongings sent to to new room with patient.
--- NOTE | 2023-11-13 15:47 | NUR ---
1350- PT ARRIVED ON MEDICAL FLOOR AT 1350 AFTER RECEIVING REPORT FROM RN ON ICU FLOOR. PT ARRIVED ON FLOOR IN STABLE CONDITION.
--- NOTE | 2023-11-13 17:20 | NUR ---
SUMMARY- PT DENIES ANY PAIN THIS SHIFT SINCE TRANSFER. PT CALM AND COOPERATIVE WITH CARE. AAOX2-3. BEDREST.
[2023-11-14] VITALS (22 sets, daily range): BP systolic 115–174; BP diastolic 46–113
--- NOTE | 2023-11-14 02:11 | NUR ---
SHIFT JOSIAHY, PT RESTING IN BED, SLEEPING AT TIMES AND AT TIMES APPEARS TO BE AWAKE. PT SEEMED VERY SUSPISIOUS WHEN GETTING HER IV ANTIBIOTIC. WANTED TO KNOW WHY IV AND NOT PO MED GIVEN. EXSPLANED TO PT WHY AND PT ALLOWED INFUSION BUT STILL SEEMED SUSPIOUS. BED ALARM ON AND CALL LIGHT IN REACH.
[2023-11-14 05:37] LABS: Hematocrit 28.3 % (33.0-51.0); Hemoglobin 9.4 g/dL (11.5-16.0); Mean Corpuscular HGB 26.8 pg (26.0-34.0); Mean Corpuscular HGB Conc 33.2 g/dL (31.5-36.5); Mean Corpuscular Volume 81 fL (80-100); Mean Platelet Volume 10.9 fL (9.1-12.4); Platelet Count 630 K/mm3 (150-400); RDW Coefficient Variation 14.2 % (11.7-14.2); RDW Standard Deviation 40.9 fL (35.1-46.3); Red Blood Cell Count 3.51 M/mm3 (3.80-5.20)
[2023-11-14 05:44] LABS: White Blood Cell Count 22.32 K/mm3 (4.00-11.30)
[2023-11-14 05:57] LABS: Magnesium, Blood 1.5 mg/dL (1.6-2.4)
[2023-11-14 06:04] LABS: Albumin, Blood 2.4 g/dL (3.4-5.0); Anion Gap 7 mmol/L (6-16); Blood Urea Nitrogen 7 mg/dL (8-24); Bun/Creatinine Ratio 17.3 (12.0-20.0); CO2, Blood 26 mmol/L (21-32); Calcium, Blood 7.9 mg/dL (8.5-10.1); Chloride, Blood 85 mmol/L (98-108); Creatinine, Blood 0.41 mg/dL (0.40-1.00); Glomerular Filtration Rate 100 (60-); Glucose, Blood 129 mg/dL (70-99); Phosphorus, Blood 2.2 mg/dL (2.5-4.9); Potassium, Blood 3.7 mmol/L (3.5-5.5); Sodium, Blood 118 mmol/L (136-145)
[2023-11-14 06:12] LABS: BAND PERCENT MAN 3 % (0-8); BASOPHILS ABSOLUTE MAN 0.89 K/mm3 (0.00-0.23); BASOPHILS PERCENT MAN 4 % (0-2); EOSINOPHILS ABSOLUTE MAN 0.22 K/mm3 (0.00-0.68); EOSINOPHILS PERCENT MAN 1 % (0-6); LYMPHOCYTES ABSOLUTE MAN 1.56 K/mm3 (0.84-5.20); LYMPHOCYTES PERCENT MAN 7 % (21-46); METAMYELOCYTE ABSOLUTE MAN 0.22 K/mm3 (0.00-0.00); METAMYELOCYTE PERCENT MAN 1 % (0-0); MONOCYTES ABSOLUTE MAN 1.78 K/mm3 (0.16-1.47); MONOCYTES PERCENT MAN 8 % (4-13); MYELOCYTE ABSOLUTE MAN 0.22 K/mm3 (0.00-0.00); MYELOCYTE PERCENT MAN 1 % (0-0); SEG NEUTROPHILS PERCENT MAN 75 % (41-73); TOTAL CELLS COUNTED 100
--- NOTE | 2023-11-14 13:24 | NUR ---
REPORT TO SAMPLER TESTER- REPORT GIVEN AT 1320.
--- NOTE | 2023-11-14 13:27 | NUR ---
1220- RN NOTIFIED DR. GALLEGOS OF CRITICAL SODIUM LEVEL OF 115 AFTER RECEIVING CALL FROM LAB.
--- NOTE | 2023-11-14 17:43 | NUR ---
TRANSFER TO ICU PT TRANSFERRED TO ICU FROM MEDICAL FLOOR FOR HYPONATREMIA AND 3% NACL. PT ARRIVES AT 1345. TRANSFERRED VIA SLIDE SHEET. A&O X 2. FOLLOWS COMMANDS. ANSWERS MOST QUESTIONS APPROPRIATELY. SLEPT FOR MOST OF AFTERNOON, GROGGY WHEN SHE WOKE BUT ABLE TO ANSWER QUESTIONS AND PARTICIPATE IN CARE. MAEW. LUNGS CLEAR. SR c BBB, RATE 70'S. BP STABLE. 3% NACL STARTED VIA PICC TO [facility]. REPEAT LABS AT 1630, RESULTS TO DR MURPHY, INCREASED RATE TO 40 ML/HR c REPEAT LABS AT 1900. PT INCONTINENT OF URINE, ATTENDS IN PLACE. LARGE HEMATOMA TO RLQ. WOUNDS TO LEFT FOOT, SEE SKIN ASSESSMENT. SON, ARRON, UPDATED. WILL CONTINUE PLAN OF CARE UNTIL REPORT TO ONCOMING NURSE.
--- NOTE | 2023-11-14 21:50 | NUR ---
ASSUMED CARE CARE WAS ASSUMED OF PT AT 190, REPORT GIVEN BY ZAHRA ALCAZAR. PT A/O X2-3. ABLE TO ANSWER MOST QUESTIONS APPROPRIATELY. UNABLE TO SAY THAT SHE WAS IN THE HOSPITAL BUT ABLE TO STATE SHE WAS IN [place]. PT COOPERATIVE WITH CARE. PT ON RA, O2 SATS >95%. CARDIAC MONITORING REFLECTS SINUS RHYTHM WITH BBB. SBP 130s-140s, HR 80s. PT DENIES PAIN. PT INCONT., VOIDING LARGE AMOUNTS OF URINE. PUREWICK IN PLACE, COLLECTING YELLOW URINE. PICC TO JESSICA PATENT, 3% NACL INFUSING. NOTIFIED DR. MURPHY AT 1924 OF PT'S NA LAB. ORDERS TO CHANGE INFUSING RATE TO 30 mL/HR. CHANGED PT'S INFUSING RATE DIRECTLY AFTER TELEPHONE ORDER. NA RECHECK DRAWN AT [address] MURPHY'S ORDER, PENDING RESULTS.
[2023-11-14 22:01] LABS: Sodium, Blood 126 mmol/L (136-145); Vancomycin, Trough 14.2 ug/mL (5.0-10.0)
--- NOTE | 2023-11-14 22:17 | NUR ---
NA LAB NOTIFIED DR. MURPHY OF PT'S SODIUM LAB THAT WAS DRAWN AT 2130. ORDERS TO D/C 3% NACL.
[2023-11-15] VITALS (21 sets, daily range): BP systolic 100–154; BP diastolic 45–91
--- NOTE | 2023-11-15 03:26 | NUR ---
REPORT GIVEN TO KALE ALCAZAR.
[2023-11-15 04:37] LABS: Hemoglobin 9.5 g/dL (11.5-16.0)
[2023-11-15 04:50] LABS: Albumin, Blood 2.4 g/dL (3.4-5.0); Anion Gap 2 mmol/L (6-16); Blood Urea Nitrogen 33 mg/dL (8-24); Bun/Creatinine Ratio 67.2 (12.0-20.0); CO2, Blood 28 mmol/L (21-32); Calcium, Blood 8.5 mg/dL (8.5-10.1); Chloride, Blood 96 mmol/L (98-108); Creatinine, Blood 0.49 mg/dL (0.40-1.00); Glomerular Filtration Rate 96 (60-); Glucose, Blood 129 mg/dL (70-99); Magnesium, Blood 1.8 mg/dL (1.6-2.4); Phosphorus, Blood 2.7 mg/dL (2.5-4.9); Potassium, Blood 3.9 mmol/L (3.5-5.5); Sodium, Blood 126 mmol/L (136-145)
--- NOTE | 2023-11-15 05:51 | NUR ---
ASSUMED CARE/END OF SHIFT SUMMARY ASSUMED CARE OF PT AT 0230. PT IS SLEEPING IN BED COMFORTABLY AND WAKES TO VERBAL STIMULI; MILDLY CONFUSED AND ORIENTED TO 2; FALL BACK ASLEEP WHEN NOT STIMULATED. SPO2 >95% ON RA. AFEBRILE. HR 70'S. SBP 120-130'S. PUREWICK IN PLACE WITH LARGE AMOUNT OF OUTPUT. NO BM. PICC TO RUE PATENT AND SALINE LOCKED. WILL REPORT TO AM RN WHEN AVAILABLE.
--- NOTE | 2023-11-15 10:21 | NUR ---
ASSUMED CARE BEDSIDE REPORT FROM KALE ALCAZAR AT 0700. PT RESTING IN BED. WAKES c VERBAL STIMULI. A&OX 2. FOLLOWS COMMANDS. SLOW TO RESPOND BUT ANSWERS QUESTIONS APPROPRIATELY. MAEW. LUNGS CLEAR. SR c BBB, RATE 80'S. BP STABLE. TOLERATING PO WELL. ABD ROUND, SOFT, NON TENDER. BT X 4. HEMATOMA TO RLQ. PICC TO RUE, DRESSING C/D/I. DR MURPHY AND DR GALLEGOS ROUNDED. PLAN FOR REPEAT NA AT 1100. WILL CONTINUE PLAN OF CARE.
--- NOTE | 2023-11-15 16:41 | NUR ---
SHIFT SUMMARY/TRANSFER TO MEDICAL FLOOR NO ACUTE CHANGES THIS SHIFT. NA REMAINS STABLE, CONTINUED NACL TABS AND UREA. TOLERATING PO WELL. CHANGED DIET TO FINGER FOODS D/T FINE TREMORS TO BUE. REMAINS A&OX 2. FOLLOWS COMMANDS. ANSWERS MOST QUESTIONS APPROPRIATELY. SLOW TO RESPOND. HEMATOMA TO RLQ UNCHANGED. PT INCONTINENT OF URINE, PUREWICK IN PLACE. WOUNDS TO LEFT FOOT, SEE SKIN ASSESSMENT. PT TO BE TRANSFERRED TO [facility], REPORT TO WAI ALCAZAR. SON, ARRON, UPDATED ON TRANSFER AND CARE PLAN.
--- NOTE | 2023-11-15 18:34 | NUR ---
PHYSICIAN CONTACT CALLED DR MURPHY WITH SODIUM RESULTS OF 132, STATED TO CONTINUE AND WILL HAVE LABS IN AM. CARES ONGOING
--- NOTE | 2023-11-15 18:42 | NUR ---
SHIFT SUMMARY PATIENT TRANSFERRED ROOMS THIS SHIFT, WOUND TO LEFT FOOT COVERED WITH MEPILEX. ON ROOM AIR. NO C/O PAIN SINCE ADMIT TO THIS FLOOR. ABLE TO TAKE SODIUM PILLS WITH APPLESAUCE. CARES ONGOING.
--- NOTE | 2023-11-16 03:51 | NUR ---
Shift Summary: Ms. De Oliveira is alert and oriented x 3. Respirations are regular and unlabored. Lungs sounds clear. She is on room air. She has a triple lumen picc line in her right arm that flushes without difficulty. She is incontinent of urine and stool. He had a large void and was cleaned and repositioned. She is on 1000ml fluid restriction. Her bed is in low position. Heels floated. Call light is in reach.
[2023-11-16 05:32] VITALS: BP 139/67
[2023-11-16 06:43] LABS: Hematocrit 33.2 % (33.0-51.0); Hemoglobin 10.5 g/dL (11.5-16.0); Mean Corpuscular HGB Conc 31.6 g/dL (31.5-36.5); Mean Corpuscular Volume 85 fL (80-100); Mean Platelet Volume 10.9 fL (9.1-12.4); Platelet Count 618 K/mm3 (150-400); RDW Coefficient Variation 15.4 % (11.7-14.2); RDW Standard Deviation 46.9 fL (35.1-46.3); Red Blood Cell Count 3.89 M/mm3 (3.80-5.20); White Blood Cell Count 18.01 K/mm3 (4.00-11.30)
[2023-11-16 07:00] LABS: Albumin, Blood 2.7 g/dL (3.4-5.0); Anion Gap 2 mmol/L (6-16); Blood Urea Nitrogen 36 mg/dL (8-24); Bun/Creatinine Ratio 85.3 (12.0-20.0); CO2, Blood 30 mmol/L (21-32); Calcium, Blood 9.2 mg/dL (8.5-10.1); Chloride, Blood 103 mmol/L (98-108); Creatinine, Blood 0.42 mg/dL (0.40-1.00); Glomerular Filtration Rate 99 (60-); Glucose, Blood 135 mg/dL (70-99); Magnesium, Blood 2.1 mg/dL (1.6-2.4); Phosphorus, Blood 3.3 mg/dL (2.5-4.9); Potassium, Blood 3.6 mmol/L (3.5-5.5); Sodium, Blood 135 mmol/L (136-145)
[2023-11-16 07:59] VITALS: BP 157/64
[2023-11-16 15:32] VITALS: BP 151/70
--- NOTE | 2023-11-16 18:25 | NUR ---
ASSUMPTION OF CARE NOTE: ASSUMED CARE OF PATIENT AT 1300. PATIENT A/O TO SELF AND PLACED. PATIENT DENIES CP/PRESSURE, SOB, N/V, DIZZINESS AND GENERALIZED PAIN, WHEN ASKED. PATIENT IS INCONTINENCE OF BLADDER, PUREWICK SYSTEM IN PLACED AND CHANGED PER PROTOCOL. R HEEL MIPELEX DRESSING CHANGED. PATIENT RECEIVED SCHEDULED MEDS PER EMAR. VITAL SIGNS REVIEWED. PICC LINE TO JESSICA SALINE LOCKED. BED ALARM ON FOR SAFETY. CALL LIGHT IN REACH.
[2023-11-16 19:30] VITALS: BP 162/69
[2023-11-16 22:42] LABS: Vancomycin, Trough 17.9 ug/mL (5.0-10.0)
[2023-11-17 05:44] LABS: Hematocrit 33.7 % (33.0-51.0); Hemoglobin 10.7 g/dL (11.5-16.0)
[2023-11-17 05:49] VITALS: BP 156/60
[2023-11-17 06:36] LABS: Albumin, Blood 2.7 g/dL (3.4-5.0); Anion Gap Unable to Calculate mmol/L (6-16); Blood Urea Nitrogen 44 mg/dL (8-24); Bun/Creatinine Ratio 97.6 (12.0-20.0); CO2, Blood 33 mmol/L (21-32); Calcium, Blood 9.6 mg/dL (8.5-10.1); Chloride, Blood 103 mmol/L (98-108); Creatinine, Blood 0.45 mg/dL (0.40-1.00); Glomerular Filtration Rate 98 (60-); Glucose, Blood 138 mg/dL (70-99); Magnesium, Blood 1.8 mg/dL (1.6-2.4); Phosphorus, Blood 3.8 mg/dL (2.5-4.9); Potassium, Blood 3.8 mmol/L (3.5-5.5); Sodium, Blood 135 mmol/L (136-145)
[2023-11-17 07:26] VITALS: BP 137/58
[2023-11-17 09:51] LABS: Source, Urine Clean Catch
[2023-11-17 10:04] LABS: Appearance, Urine Hazy (Clear); Bilirubin, Urine Neg (Neg); Blood, Urine 2+ (Neg); Color, Urine Yellow (P-Yellow); Glucose Qualitative, Urine Neg (Neg); Ketones, Urine Neg (Neg); Leukocyte Esterase, Urine 3+ (Neg); Nitrite, Urine Neg (Neg); Protein, Urine 1+ (Neg); Urobilinogen, Urine NORM (Normal)
[2023-11-17 10:45] LABS: Hemoglobin 10.1 g/dL (11.5-16.0); Mean Corpuscular HGB 26.9 pg (26.0-34.0); Mean Corpuscular HGB Conc 30.6 g/dL (31.5-36.5); Mean Corpuscular Volume 88 fL (80-100); Mean Platelet Volume 10.5 fL (9.1-12.4); Platelet Count 514 K/mm3 (150-400); RDW Coefficient Variation 15.8 % (11.7-14.2); RDW Standard Deviation 49.3 fL (35.1-46.3); Red Blood Cell Count 3.75 M/mm3 (3.80-5.20); White Blood Cell Count 16.99 K/mm3 (4.00-11.30)
[2023-11-17 11:01] LABS: Squamous Epithelial Cells Many /hpf (Few)
[2023-11-17 11:02] LABS: Bacteria Many /hpf; Transitional Epithelial Cells Few /hpf (0-Rare); White Blood Cells, Urine 25-50 /hpf (0-5)
[2023-11-17 11:42] LABS: SARS-Cov-2 (COVID-19) PCR, MMC NEGATIVE (NEGATIVE)
[2023-11-17] MEDS ORDERED: DOCUZEN 8.6-501 EACH PO (14:16)
[2023-11-17] MEDS ORDERED: AMLO10 PO (14:16)
[2023-11-17] MEDS ORDERED: DOXY100 PO (14:17)
[2023-11-17] MEDS ORDERED: MIRALAX17 GM PO (14:17)
--- NOTE | 2023-11-17 16:17 | NUR ---
DISCHARGE NOTE: MEDICAL TRANSPORT ARRIVED VIA WHEELCHAIR TO TAKE PATIENT BACK TO [facility]. PATIENT WAS TRANSFERRED VIA SIT TO STAND TO WHEELCHAIR. HER BELONGINGS WERE COLLECTED AND PAPERWORK GIVEN TO TRANSPORTER. PICC LINE D/C'D BY FASHION CONSULTANT SELLING. NO SIGNS OR SYMPTOMS OF DISTRESS DURING DISCHARGE.
== END 2023-11-17 16:08 | DRG 641 ==
LOC: ER 11:09 → PCU 13:48 → ICUE 13:48 → PCU 14:23 → ICUE 11-12 09:29 → MEDS 11-13 13:38 → ICUE 11-14 13:41 → MEDS 11-15 17:01
PROVIDERS: Emergency Medicine; Internal Medicine Nephrology; ADMIT Internal Medicine
PROC: 02HV33Z Insertion of Infusion Device into Superior Vena Cava, Percutaneous Approach (ICD-10-PCS; principal; 2023-11-12)
DX: E87.1 Hypo-osmolality and hyponatremia (principal); N17.9 Acute kidney failure, unspecified; F03.90 Unspecified dementia, unspecified severity, without behavioral disturbance, psychotic disturbance, mood disturbance, and anxiety; E03.9 Hypothyroidism, unspecified; M48.02 Spinal stenosis, cervical region; D72.829 Elevated white blood cell count, unspecified; Z66 Do not resuscitate; N18.1 Chronic kidney disease, stage 1; D63.1 Anemia in chronic kidney disease; E11.22 Type 2 diabetes mellitus with diabetic chronic kidney disease; I12.9 Hypertensive chronic kidney disease with stage 1 through stage 4 chronic kidney disease, or unspecified chronic kidney disease; R31.29 Other microscopic hematuria; S30.1XXA Contusion of abdominal wall, initial encounter; X58.XXXA Exposure to other specified factors, initial encounter; E83.39 Other disorders of phosphorus metabolism; E83.42 Hypomagnesemia; E88.09 Other disorders of plasma-protein metabolism, not elsewhere classified; K59.00 Constipation, unspecified; Z11.52 Encounter for screening for COVID-19; Z88.0 Allergy status to penicillin; Z79.84 Long term (current) use of oral hypoglycemic drugs; Z79.890 Hormone replacement therapy
CPT/HCPCS: 36415; 36569; 74177; 80048; 80053; 80069; 80202; 81001; 82533; 82947; 83605; 83735; 83930; 84295; 84443; 84550; 85007; 85014; 85018; 85025; 85027; 87040; 87077; 87086; 87186; 94760; 94762; 99284; A9270; C1751; J1956; J3370; J3475; J7030; J7050; J7060; Q9967; U0002

== ENCOUNTER 2023-12-12 18:53 | Emergency (ER) | payer MEDICARE ==
[~2023-12-12] VITALS: Ht 170.2 cm; Wt 90.7 kg
[~2023-12-12 18:53] MED LIST changes: +AMLO10 PO; +DOCUZEN 8.6-501 EACH PO; +DOXY100 PO; +MIRALAX17 GM PO
[2023-12-12 19:20] VITALS: BP 106/59
[2023-12-12] MEDS ORDERED: Acetaminophen 325 MG TABLET PO ONE (23:10)
[2023-12-12] MEDS ORDERED: RX Prepack 6 Tabs Oxycodone 5mg UD ONE (23:10)
== END 2023-12-12 23:29 | disposition home or self-care (01) ==
LOC: ER 18:53
DX: S70.01XA Contusion of right hip, initial encounter (principal); F17.200 Nicotine dependence, unspecified, uncomplicated; Z88.0 Allergy status to penicillin; Z79.899 Other long term (current) drug therapy; E11.22 Type 2 diabetes mellitus with diabetic chronic kidney disease; N18.9 Chronic kidney disease, unspecified; E03.9 Hypothyroidism, unspecified; K21.9 Gastro-esophageal reflux disease without esophagitis; W01.10XA Fall on same level from slipping, tripping and stumbling with subsequent striking against unspecified object, initial encounter
CPT/HCPCS: 73502; A9270

== ENCOUNTER 2024-01-28 12:18 | Inpatient (IN) | payer MEDICARE ==
[~2024-01-28] VITALS: Ht 170.2 cm; Wt 85.0 kg
[~2024-01-28 12:18] MED LIST changes: +SULFAMETHOXAZO1 EAC1 PO; +TRAM50 PO
[2024-01-28 13:45] LABS: BASOPHILS ABSOLUTE AUTO 0.24 K/mm3 (0.00-0.23); BASOPHILS PERCENT AUTO 1 % (0-2); EOSINOPHILS ABSOLUTE AUTO 0.02 K/mm3 (0.00-0.68); EOSINOPHILS PERCENT AUTO 0 % (0-6); Hematocrit 37.3 % (33.0-51.0); Hemoglobin 11.4 g/dL (11.5-16.0); IMMATURE GRAN ABSOLUTE AUTO 0.28 K/mm3 (0.00-0.10); IMMATURE GRAN PERCENT AUTO 1 % (0-1); LYMPHOCYTES ABSOLUTE AUTO 1.39 K/mm3 (0.84-5.20); LYMPHOCYTES PERCENT AUTO 7 % (21-46); MONOCYTES PERCENT AUTO 3 % (4-13); Mean Corpuscular HGB 27.1 pg (26.0-34.0); Mean Corpuscular HGB Conc 30.6 g/dL (31.5-36.5); Mean Corpuscular Volume 89 fL (80-100); Mean Platelet Volume 11.5 fL (9.1-12.4); NEUTROPHILS ABSOLUTE AUTO 18.78 K/mm3 (1.96-9.15); NEUTROPHILS PERCENT AUTO 88 % (41-73); Platelet Count 357 K/mm3 (150-400); RDW Coefficient Variation 14.8 % (11.7-14.2); White Blood Cell Count 21.31 K/mm3 (4.00-11.30)
[2024-01-28 13:47] LABS: Albumin/Globulin Ratio 0.7 (0.8-1.8); Bilirubin, Total 0.5 mg/dL (0.1-1.0); Bun/Creatinine Ratio 42.5 (12.0-20.0); Calcium, Blood 9.6 mg/dL (8.5-10.1); Creatinine, Blood 0.71 mg/dL (0.40-1.00); Globulin, Blood 4.5 g/dL (2.2-4.0); Total Protein, Blood 7.5 g/dL (6.4-8.2)
[2024-01-28] MEDS ORDERED: [UNRECOGNIZED DRUG - CODE] PO (13:52)
[2024-01-28] MEDS ORDERED: BUMETANIDE2 M6 PO (13:52)
[2024-01-28] MEDS ORDERED: ZOLOFT50 MG PO (13:53)
[2024-01-28] MEDS ORDERED: POTA8 PO (13:53)
[2024-01-28] MEDS ORDERED: Midazolam HCl 1MG / ML 2ML Vial IV ONE (15:20)
[2024-01-28] MEDS ORDERED: Azithromycin 500 MG in NS 250 ML IV ONE (16:45)
[2024-01-28] MEDS ORDERED: CefTRIAXone Sodium 1,000 MG in NS 50 ML IV ONE (16:45)
[2024-01-28 16:51] LABS: Automated BF RBC Count 0.128 M/mm3 (0-0); Automated BF WBC Count 0.837 K/mm3 (0-999)
[2024-01-28 16:58] LABS: Body Fluid WBC Count 837 /mm3 (0-999); RBC Count, Body Fluid 128000 /mm3 (0-0)
[2024-01-28 17:10] LABS: Glucose, Body Fluid 212 mg/dL; Lactate Dehydrogenase, Body Fl 351 U/L; Protein, Body Fluid 4.8 g/dL
[2024-01-28 17:27] LABS: Appearance, Body Fluid Bloody (Clear); Color, Body Fluid Red (None-Yellow); Total Cell Count, Body Fluid 100
[2024-01-28] MEDS ORDERED: NS 1,000 ML IV ONE ×2 (18:00→18:15)
[2024-01-28 18:15] LABS: Magnesium, Blood 2.2 mg/dL (1.6-2.4)
[2024-01-28 18:23] LABS: International Normalized Ratio 1.07; Prothrombin Time Results 11.2 Sec (9.7-11.5)
[2024-01-28] MEDS ORDERED: Albuterol 2.5 MG/3 ML VIAL INH PRN (18:45)
[2024-01-28] MEDS ORDERED: Ondansetron HCl 2 MG / ML 2ML Vial IV PRN (18:45)
[2024-01-28] MEDS ORDERED: Acetaminophen 325 MG TABLET PO PRN (18:45)
[2024-01-28] MEDS ORDERED: EUTHYROX125 MCG PO (20:24)
[2024-01-28] MEDS ORDERED: Sodium Chloride 1 GM TAB PO SCH (21:00)
--- NOTE | 2024-01-28 22:11 | NUR ---
PATIENT IS A NEW ADMIT FROM THE ED. AXOX 3-4, FORGETFUL AT TIMES. THREE PERSON TRANSFER FROM [facility] TO BED. PLACED ON 2L O2 NC IN ED AND RA BASELINE. NS INFUSING FROM ED AND COMPLETED. DENIES CHEST PAIN AND N/V. PUREWICK PLACED AND RT IN TO SEE PATIENT. ON CONTINUOUS PULSE OXIMETRY STATING 96% ON 2L O2 NC AND HR 97. 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 [place] AND LEFT BILATERAL HEARING AIDS AT HOME. BANDAID ON LS BACK FROM THORACENTESIS. REPORTS LIVE WITH HER FRIEND AND SON AT THEIR HOUSE. HAS CAREGIVERS COME IN DAILY. ORIENTED TO ROOM AND CALL LIGHT. WATCHING TV AND RESTING. WCTM.
[2024-01-29] VITALS (8 sets, daily range): BP systolic 128–218; BP diastolic 58–128
--- NOTE | 2024-01-29 04:11 | NUR ---
SHIFT SUMMARY PATIENT REPORTS SOB AT TIMES. ANXIOUS. STATING 94-95% ON 2L O2 NC CONTINUOUS PULSE OXIMETRY. REQUESTED TO STAND AT BEDSIDE FOR A FEW MINUTES REPORTING SHE HAS BEEN LAYING DOWN FOR A LONG TIME. SOB WITH ACTIVITY. USED FWW AND GAIT BELT TO STAND. DENIES CHEST PAIN AND N/V. VSS/AFEBRILE. PUREWICK IN PLACE. MISSES HER DOG. AWAKE MOST OF THE SHIFT REPORTS SHE READS UNTIL 03:30 AT HOME. PIV REMAINS INTACT. LEGS ELEVATED PER ORDERS. CALL LIGHT IN REACH. BED IN LOWEST POSITION. WILL CONTINUE TO MONITOR UNTIL DAY SHIFT NURSE ASSUMES CARE.
[2024-01-29 05:30] LABS: Hematocrit 34.9 % (33.0-51.0); Hemoglobin 10.5 g/dL (11.5-16.0); Mean Corpuscular HGB 26.6 pg (26.0-34.0); Mean Corpuscular HGB Conc 30.1 g/dL (31.5-36.5); Mean Corpuscular Volume 88 fL (80-100); Platelet Count 351 K/mm3 (150-400); RDW Coefficient Variation 14.6 % (11.7-14.2); RDW Standard Deviation 47.8 fL (35.1-46.3); Red Blood Cell Count 3.95 M/mm3 (3.80-5.20); White Blood Cell Count 17.18 K/mm3 (4.00-11.30)
[2024-01-29] MEDS ORDERED: Insulin Human Lispro 100 Units/ML 3ML Syringe SC SCH (07:30)
[2024-01-29] MEDS ORDERED: LORazepam 0.5 MG Tab PO PRN ×2 (08:00→12:35)
[2024-01-29] MEDS ORDERED: Losartan Potassium 50 MG Tab PO SCH (09:00)
[2024-01-29] MEDS ORDERED: Sodium Chloride 1 GM TAB PO SCH (09:00)
[2024-01-29] MEDS ORDERED: Thyroid 60 MG Tab PO SCH (09:00)
[2024-01-29] MEDS ORDERED: Atorvastatin 40 MG Tab PO SCH (09:00)
[2024-01-29] MEDS ORDERED: Sertraline HCl 50 MG Tab PO SCH (09:00)
--- NOTE | 2024-01-29 12:02 | NUR ---
RESPIRATORY DISTRESS- PT WENT DOWN FOR A CT. WHEN SHE RETURNED SHE C/O NOT BEING ABLE TO BREATHE. PALLIATIVE CARE RN AT THE BEDSIDE, ASSISTED WITH TRANSFER FROM THE [facility]. PT PLACED IN HIGH FOWLERS AND RT WAS CALLED FOR PRN BREATHING Tx. RESP RATE 30 ON ARRIVAL. VS CHECKED O2 INCREASED TO 4LPM TO AID IN WOB AND PT FEELING OF BEING OUT OF AIR. RT MONA AT THE BEDSIDE AND ADMINISTERING BREATHING Tx. PT UNABLE TO CARRY ON A CONVERSATION DUE TO TACHYPNEA. BREATHING Tx COMPLETEDRESP RATE SHALLOW AND RAPID STILL. PT STATES "IT IS HARD TO SLOW THE BREATHING."
--- NOTE | 2024-01-29 12:44 | NUR ---
Symptom Management 1st attempted visit pt verbalized being tired and asked this PC RN to return later. 2nd visit, pt just returning from CT Scan. Transport, Primary RN and PC RN transferred pt from [facility] to bed. Pt displaying hyperpnea with anxiety. RT to room during this visit. Interventions provided, sitting up in bed at 90 degrees, redirection/distraction, breathing Tx. Respiratory symptoms had mild improvement. Phone call to provider. Telephone order received from Dr. Still to change dosing on Lorazepam. Rx order placed accordingly. Primary RN updated on Rx change. Pt scheduled for Thoracentesis today apx 1400. Per pt request, this PC RN phoned her son, Magdi and CG, Keiko with status updates. Son was shocked to hear pt had been reffered to implement mechanic and PET scan for follow up in December 2023. Phone call placed to PCP, Dr. Watson, spoke with Elyse. PCP ordered Pulmonary consult and PET scan. Elyse is not aware if pt has been scheduled. Phone call placed to [facility]. Per Dr. Charly Colon reviewed pt's chart and requested pt be scheduled after her PET scan. PET scan is scheduled as an outpatient on 02/02/24.
[2024-01-29] MEDS ORDERED: NS 250 ML IV PRN (15:35)
[2024-01-29 15:52] LABS: Triglycerides, Body Fluid 20 mg/dL
[2024-01-29 15:54] LABS: Automated BF RBC Count 0.138 M/mm3 (0-0); Automated BF WBC Count 0.947 K/mm3 (0-999); Body Fluid WBC Count 947 /mm3 (0-999); RBC Count, Body Fluid 138000 /mm3 (0-0)
[2024-01-29 15:58] LABS: Appearance, Body Fluid Cloudy (Clear); Color, Body Fluid Red (None-Yellow)
[2024-01-29] MEDS ORDERED: Cefepime HCl 1,000 MG in NS 100 ML IV SCH (16:00)
[2024-01-29 16:10] LABS: pH, Body Fluid 6.3
[2024-01-29 16:35] LABS: Total Cell Count, Body Fluid 100
--- NOTE | 2024-01-29 19:49 | NUR ---
SHIFT SUMMARY- PT WENT FOR A CT SCAN EARLIER TODAY (SEE NOTE 'RESPIRATORY DISTRESS' FOR DETAILS. ATIVAN WAS GIVEN. 0.5 IS A MORE THAN ADEQUATE DOSE FOR EXTREME ANXIETY FOR THE PT. PT HAD A SECOND THORACENTESIS TODAY DRAINING ANOTHER L OF FLUID. DR GOLDSMITH WAS CONSULTED AND CAME TO SPEAK TO THE PT. DR GOLDSMITH CONSULTED DR NORRIS (GEN SURGERY) TO PLACE A PLUREX DRAIN FOR THE PT. PT IS AWARE OF THE PLAN AND AGREES WITH IT. DR GOLDSMITH CALLED HER SON (WITH THE PT PERMISSION FIRST) AND UPDATED THE SON. PT HAS AN OUT PT PET SCAN SCHEDULED ON [place] 02-02-24 AT 1430 LOW CARB DIET FOR 2 DAYS PRIOR NPO 6 HOURS PRIOR. PT STATES SHE IS AWARE OF THE APPOINTMENT. PT STARTED ON ANTIBIOTICS TODAY AND SEEMS TO BE TOLLERATING THEM WELL. BEDSIDE REPORT COMPLETED WITH NIGHT RN'S PT ON 4L O2 VIA NC O2 SATS 94% SITTING UP IN BED, CALL LIGHT IN REACH NO S&S OF DISTRESS AT THE TIME OF BEDSIDE REPORT.
[2024-01-29] MEDS ORDERED: Lactobacil 2-S.Thermo-Bifido 1 1 Cap PO SCH (21:00)
[2024-01-29] MEDS ORDERED: LORazepam 2 MG/ML 1ML Injection IV ONE (23:10)
--- NOTE | 2024-01-29 23:49 | NUR ---
ACUTE RESPIRATORY DISTRESS/SOB @2136 PT. GIVEN ATIVAN PO ORDERED (0.5MG), APPROXIMATELY 2300, PT. C/O SOB, HOLDING THE BEDRAIL, INCREASED RR. PT. GIVEN CONTINOUS 4L 02 VIA NC ORDERED, PT. SITTING UPRIGHT IN BED, PT.'S RR 28, HR 128, BP. INCREASING; 218/128. RT. PRESENT AND ADMINISTERING BREATHING TX. CHARGE NURSE AND RN PRESENT BY BEDSIDE. THIS NURSE CALLED TO MANUEL CASTAÑEDA PROVIDER. TELEPHONE ORDER FOR IV 1MG ATIVAN (ONCE), ALSO VBG STAT ORDER, AND PORTABLE CHEST X-RAY STAT ORDER. @2316, ATIVAN 1MG IV GIVEN ORDERED. PT. SITTING ON THE SIDE OF THE BED. RT. PRESENT, NEW ORDER FOR BI-PAP. BI-PAP/MASK PUT ON FOR PT. @2358, PT.RESTING, HR 111, O2 SAT. CONTINUOUS MONITOR 94-95%, RR 22-24. @2410 COUGHING WITH BI PAP MASK ON, HR 109, O2 94% WILL CONTINUE TO MONITOR T/O THIS SHIFT. RN AND CHARGE NURSE PRESENT.
[2024-01-30] VITALS (14 sets, daily range): BP systolic 99–128; BP diastolic 47–85
[2024-01-30] LABS: PCO2 Venous 44.6 mmHg (38-42); pH Blood Venous 7.41 (7.34-7.37)
[2024-01-30 00:01] LABS: Base Excess Venous 3.8 mmol/L; Bicarbonate Venous 27.4 mmol/L (24.0-30.0)
[2024-01-30 05:49] LABS: BASOPHILS ABSOLUTE AUTO 0.24 K/mm3 (0.00-0.23); BASOPHILS PERCENT AUTO 1 % (0-2); EOSINOPHILS ABSOLUTE AUTO 0.04 K/mm3 (0.00-0.68); EOSINOPHILS PERCENT AUTO 0 % (0-6); Hematocrit 32.6 % (33.0-51.0); IMMATURE GRAN ABSOLUTE AUTO 0.22 K/mm3 (0.00-0.10); IMMATURE GRAN PERCENT AUTO 1 % (0-1); LYMPHOCYTES ABSOLUTE AUTO 0.88 K/mm3 (0.84-5.20); LYMPHOCYTES PERCENT AUTO 5 % (21-46); MONOCYTES ABSOLUTE AUTO 0.61 K/mm3 (0.16-1.47); MONOCYTES PERCENT AUTO 3 % (4-13); Mean Corpuscular HGB 27.4 pg (26.0-34.0); Mean Corpuscular HGB Conc 30.7 g/dL (31.5-36.5); Mean Corpuscular Volume 89 fL (80-100); Mean Platelet Volume 11.3 fL (9.1-12.4); NEUTROPHILS ABSOLUTE AUTO 15.73 K/mm3 (1.96-9.15); NEUTROPHILS PERCENT AUTO 89 % (41-73); Platelet Count 365 K/mm3 (150-400); RDW Coefficient Variation 14.8 % (11.7-14.2); RDW Standard Deviation 47.6 fL (35.1-46.3); Red Blood Cell Count 3.65 M/mm3 (3.80-5.20); White Blood Cell Count 17.72 K/mm3 (4.00-11.30)
[2024-01-30 06:14] LABS: Albumin, Blood 2.3 g/dL (3.4-5.0); Albumin/Globulin Ratio 0.6 (0.8-1.8); Bilirubin, Total 0.5 mg/dL (0.1-1.0); Calcium, Blood 8.7 mg/dL (8.5-10.1); Creatinine, Blood 0.59 mg/dL (0.40-1.00); Globulin, Blood 3.6 g/dL (2.2-4.0); Potassium, Blood 4.3 mmol/L (3.5-5.5); Total Protein, Blood 5.9 g/dL (6.4-8.2)
--- NOTE | 2024-01-30 06:19 | NUR ---
SHIFT SUMMARY RESPIRATORY EVANTS (SEE NOTES.) PT. HAS BEEN RESTING, COMFORTABLY IN BED WITH BI-PAP ON FOR THE REST OF THE SHIFT. PT. AWAKE APPROX. 415AM THIS MORNING, C/O BODY PAIN, AND ANXIETY, ATIVAN 1MG PO AND TYLENOL 650MG PO GIVEN WITH SMALL SIPS OF WATER. PT. RESTING COMFORTABLY, HOB 60+ DEGREES. PT. SWITCHED BACK FROM BI-PAP TO NC @4L. O2 BIOX 95%, VSS. BED AT THE LOWEST POSITION, CALL LIGHT IN REACH. WILL REPORT TO THE NEXT SHIFT NURSE.
[2024-01-30] MEDS ORDERED: Lactated Ringer's 1,000 ML IV SCH (09:55)
--- NOTE | 2024-01-30 10:08 | NUR ---
1005- PT TRANSFERRED TO DAY SURGERY FOR PLERUX DRAIN.
--- NOTE | 2024-01-30 10:31 | NUR ---
DC'D RIGHT WRIST IV SITE, POSITIONAL/RED TO AREA AND NOT PATENT.
[2024-01-30] MEDS ORDERED: FentaNYL Citrate 50 MCG/ML 2 ML Injection ONE (10:35)
[2024-01-30] MEDS ORDERED: Midazolam HCl 1MG / ML 2ML Vial ONE (10:35)
--- NOTE | 2024-01-30 10:46 | NUR ---
01/30/24 1046 Brisa Dahl LOCAL 15 ML 1% LIDOCAINE CAME IN CATH KIT. INJECTED INTO OP SITE BY DR. TAYLOR.
[2024-01-30] MEDS ORDERED: Lidocaine HCl 1% 30 ML SDV ONE (10:51)
[2024-01-30] MEDS ORDERED: Lidocaine HCl 1% 30 ML SDV XX ONE (10:53)
--- NOTE | 2024-01-30 12:38 | NUR ---
1215- ALLEVYN PLACED ON PT COCCYX TO PREVENT FURTHER BREAKDOWN. AREA IS SORE. NO BREAKDOWN AT THIS TIME. PREVENTATIVE MEASURE.
[2024-01-30] MEDS ORDERED: Vancomycin HCL 1,250 MG in NS 250 ML IV SCH (14:00)
--- NOTE | 2024-01-30 14:53 | NUR ---
CALLED PT CAREGIVER IN REGARD TO ONGOING PT CARE. CAREGIVER CONFIRMED THAT SON IS THE BEST CONTACT FOR NEXT OF KIN, AND TO TAKE CURRENT CONTACT OFF THIS IS THE PTS ROOMATE. INFORMED THE CAREGIVER, TIFFANY, THAT WE WOULD CONTACT THE SON TO UPDATE HIM IN REGARD TO THE PTS CARE.
--- NOTE | 2024-01-30 16:21 | NUR ---
GOALS OF CARE Conference call with patient and sonMagdi this afternoon to review goals of care. Pt verbalized wanting to wait on making decision of care going forward until cytology results are received. Horace Fairbanks wants to honor pt's wishes and wait. This PC RN will follow up with pt and son on Friday. Phone call placed to Dr. Mccullough with update. Pt and son request to continue with current care regimen. Pt states Horace Fairbanks and DI Aden are both decesion makers when pt is not able to speak for herself.
--- NOTE | 2024-01-30 18:06 | NUR ---
END OF SHIFT SUMMARY- PT A&OX3-4. RESPIRATORY STATUS BEGINNING OF SHIFT STARTED AT 4L, DECREASING TO 1L AT 90-92% O2 SATS. PT HAS HAD ONE COUGHING SPELL THAT ENDED NEEDING EMAR MEDICATIONS TO EASE PAIN AT INCISION SITE, FROM EARLIER PLEURX DRAINAGE SURGERY. PT HAS NOT BEEN OUT OF BED TODAY FOR US, Q2 TURNS. 0.5 MG PO ATIVAN GIVEN FOR SLIGHT ANXIETY.
[2024-01-31] MEDS ORDERED: LORazepam 2 MG/ML 1ML Injection IV ONE
[2024-01-31 03:45] VITALS: BP 137/69
[2024-01-31 05:43] LABS: BASOPHILS ABSOLUTE AUTO 0.28 K/mm3 (0.00-0.23); BASOPHILS PERCENT AUTO 2 % (0-2); EOSINOPHILS ABSOLUTE AUTO 0.03 K/mm3 (0.00-0.68); EOSINOPHILS PERCENT AUTO 0 % (0-6); Hematocrit 34.7 % (33.0-51.0); Hemoglobin 10.6 g/dL (11.5-16.0); IMMATURE GRAN ABSOLUTE AUTO 0.23 K/mm3 (0.00-0.10); IMMATURE GRAN PERCENT AUTO 1 % (0-1); LYMPHOCYTES ABSOLUTE AUTO 1.06 K/mm3 (0.84-5.20); LYMPHOCYTES PERCENT AUTO 6 % (21-46); MONOCYTES ABSOLUTE AUTO 0.56 K/mm3 (0.16-1.47); MONOCYTES PERCENT AUTO 3 % (4-13); Mean Corpuscular HGB 27.1 pg (26.0-34.0); Mean Corpuscular HGB Conc 30.5 g/dL (31.5-36.5); Mean Corpuscular Volume 89 fL (80-100); Mean Platelet Volume 11.5 fL (9.1-12.4); NEUTROPHILS ABSOLUTE AUTO 14.73 K/mm3 (1.96-9.15); NEUTROPHILS PERCENT AUTO 87 % (41-73); Platelet Count 397 K/mm3 (150-400); RDW Coefficient Variation 14.8 % (11.7-14.2); Red Blood Cell Count 3.91 M/mm3 (3.80-5.20); White Blood Cell Count 16.89 K/mm3 (4.00-11.30)
--- NOTE | 2024-01-31 06:03 | NUR ---
SHIFT SUMMARY PT VERY ANXIOUS THIS SHIFT. ADMINISTERED IV ATIVAN FOR ANXIETY. PT ABLE TO SLEEP. CONTINUED TO DSAT TO HIGH 80'S DT TAKING OFF HER O2 AND BIPAP. EXPLAINED TO PT THE NEED FOR HER SUPPLEMENTAL O2. PT ALSO YELLING AND SWEARING AT DROP MAN. EXPLAINED TO PT SHE CANNOT BE TREATING STAFF THAT WAY. PT STILL REFUSING BIPAP, BUT AGREED TO WEAR NC. CONTINUING TO MONITOR.
[2024-01-31 06:09] LABS: Albumin, Blood 2.3 g/dL (3.4-5.0); Albumin/Globulin Ratio 0.6 (0.8-1.8); Bilirubin, Total 0.6 mg/dL (0.1-1.0); Bun/Creatinine Ratio 23.5 (12.0-20.0); Calcium, Blood 8.8 mg/dL (8.5-10.1); Creatinine, Blood 0.6 mg/dL (0.40-1.00); Globulin, Blood 3.9 g/dL (2.2-4.0); Potassium, Blood 4.3 mmol/L (3.5-5.5); Total Protein, Blood 6.2 g/dL (6.4-8.2)
[2024-01-31 07:54] VITALS: BP 139/74
[2024-01-31] MEDS ORDERED: Magnesium Hydroxide Conc 10 ML UDC PO PRN (11:25)
[2024-01-31 13:25] LABS: Vancomycin, Trough 7.5 ug/mL (5.0-10.0)
[2024-01-31] MEDS ORDERED: Vancomycin HCL 1,250 MG in NS 250 ML IV SCH (14:00)
[2024-01-31 15:16] VITALS: BP 120/75
--- NOTE | 2024-01-31 16:56 | NUR ---
SHIFT SUMMARY Pt remains alert x3 with bouts of forgetfulness this shift. VSS. PO Ativan effective for dyspnea/anxiety. O2 sats remain 95-97 with exception of exertion or turns. Recovery with coaching to deep breath in thru her nose. Repositioned Q 2 hours. Up in recliner with 2 person ast to recliner, then back to bed. Incontinent of urine. Alondra care provided. Pain and safety maintained. Will continue to monitor this shift.
[2024-01-31 19:38] VITALS: BP 106/77
[2024-01-31] MEDS ORDERED: Docusate Sodium 100 MG Cap PO SCH (21:00)
[2024-01-31] MEDS ORDERED: Sennosides 8.6 MG Tab PO SCH (21:00)
[2024-01-31 22:15] VITALS: BP 93/76
[2024-01-31] MEDS ORDERED: Metoprolol Tartrate 1 MG/ML 5 ML VIAL IV ONE (22:25)
[2024-01-31 22:34] LABS: Free Thyroxine 1.2 ng/dL (0.70-1.60); Triiodothyronine, Free 1.77 pg/mL (2.18-3.98)
[2024-01-31 22:44] LABS: BASOPHILS ABSOLUTE AUTO 0.28 K/mm3 (0.00-0.23); BASOPHILS PERCENT AUTO 1 % (0-2); EOSINOPHILS ABSOLUTE AUTO 0.02 K/mm3 (0.00-0.68); EOSINOPHILS PERCENT AUTO 0 % (0-6); Hemoglobin 10.8 g/dL (11.5-16.0); IMMATURE GRAN ABSOLUTE AUTO 0.25 K/mm3 (0.00-0.10); IMMATURE GRAN PERCENT AUTO 1 % (0-1); LYMPHOCYTES ABSOLUTE AUTO 1.07 K/mm3 (0.84-5.20); LYMPHOCYTES PERCENT AUTO 5 % (21-46); MONOCYTES ABSOLUTE AUTO 0.65 K/mm3 (0.16-1.47); MONOCYTES PERCENT AUTO 3 % (4-13); Mean Corpuscular HGB 26.7 pg (26.0-34.0); Mean Corpuscular HGB Conc 30.9 g/dL (31.5-36.5); Mean Corpuscular Volume 87 fL (80-100); NEUTROPHILS ABSOLUTE AUTO 19.11 K/mm3 (1.96-9.15); NEUTROPHILS PERCENT AUTO 89 % (41-73); Platelet Count 435 K/mm3 (150-400); RDW Coefficient Variation 14.6 % (11.7-14.2); RDW Standard Deviation 46.9 fL (35.1-46.3); Red Blood Cell Count 4.04 M/mm3 (3.80-5.20); White Blood Cell Count 21.38 K/mm3 (4.00-11.30)
[2024-01-31 23:02] LABS: Albumin, Blood 2.1 g/dL (3.4-5.0); Albumin/Globulin Ratio 0.5 (0.8-1.8); Bilirubin, Total 0.5 mg/dL (0.1-1.0); Bun/Creatinine Ratio 25.3 (12.0-20.0); Calcium, Blood 8.6 mg/dL (8.5-10.1); Creatinine, Blood 0.59 mg/dL (0.40-1.00); Globulin, Blood 3.9 g/dL (2.2-4.0); Magnesium, Blood 1.9 mg/dL (1.6-2.4); Potassium, Blood 4.3 mmol/L (3.5-5.5)
[2024-02-01 01:06] LABS: BASOPHILS ABSOLUTE AUTO 0.28 K/mm3 (0.00-0.23); BASOPHILS PERCENT AUTO 1 % (0-2); EOSINOPHILS ABSOLUTE AUTO 0.05 K/mm3 (0.00-0.68); EOSINOPHILS PERCENT AUTO 0 % (0-6); Hematocrit 35.2 % (33.0-51.0); Hemoglobin 10.8 g/dL (11.5-16.0); IMMATURE GRAN ABSOLUTE AUTO 0.31 K/mm3 (0.00-0.10); IMMATURE GRAN PERCENT AUTO 2 % (0-1); LYMPHOCYTES ABSOLUTE AUTO 1.08 K/mm3 (0.84-5.20); LYMPHOCYTES PERCENT AUTO 5 % (21-46); MONOCYTES ABSOLUTE AUTO 0.66 K/mm3 (0.16-1.47); MONOCYTES PERCENT AUTO 3 % (4-13); Mean Corpuscular HGB 26.9 pg (26.0-34.0); Mean Corpuscular HGB Conc 30.7 g/dL (31.5-36.5); Mean Corpuscular Volume 88 fL (80-100); Mean Platelet Volume 11.4 fL (9.1-12.4); NEUTROPHILS ABSOLUTE AUTO 17.94 K/mm3 (1.96-9.15); NEUTROPHILS PERCENT AUTO 88 % (41-73); Platelet Count 465 K/mm3 (150-400); RDW Coefficient Variation 14.6 % (11.7-14.2); Red Blood Cell Count 4.01 M/mm3 (3.80-5.20); White Blood Cell Count 20.32 K/mm3 (4.00-11.30)
[2024-02-01 01:25] LABS: Albumin, Blood 2.1 g/dL (3.4-5.0); Albumin/Globulin Ratio 0.6 (0.8-1.8); Bilirubin, Total 0.6 mg/dL (0.1-1.0); Bun/Creatinine Ratio 25.3 (12.0-20.0); Calcium, Blood 8.6 mg/dL (8.5-10.1); Creatinine, Blood 0.59 mg/dL (0.40-1.00); Globulin, Blood 3.8 g/dL (2.2-4.0); Potassium, Blood 4.3 mmol/L (3.5-5.5); Total Protein, Blood 5.9 g/dL (6.4-8.2)
[2024-02-01 02:30] VITALS: BP 119/61
--- NOTE | 2024-02-01 06:53 | NUR ---
SHIFT SUMMARY PT HAD TACHYCARDIA WHICH WAS NOT RESOLVED WITH IV. CONSULTED WITH FRANCISCO WHO PRESCRIBED IV METOPROLOL. THIS BROUGHT HR DOWN TO 80'S. CONSULT WITH CARDIAC MONITORING.
[2024-02-01 07:43] VITALS: BP 126/57
[2024-02-01] MEDS ORDERED: Ipratropium/Albuterol SulF 2.5-0.5MG/3 ML Amp INH SCH (09:30)
[2024-02-01] MEDS ORDERED: Metoprolol Succinate 25 MG TABCR PO SCH (12:00)
[2024-02-01 15:44] VITALS: BP 130/66
--- NOTE | 2024-02-01 16:41 | NUR ---
SHIFT SUMMARY Pt lethargic at change of shift. More awake for breakfast. Frequent naps today. VSS. Denies pain. Daily thora with 600ml yrn output today. Pt tolerated well. Decreased appetite and fluid intake today. Repositioned Q2 hour. Pain and safety maintained. Will continue to monitor.
[2024-02-01] MEDS ORDERED: Apixaban 5 MG Tab PO SCH (19:00)
[2024-02-01 19:14] VITALS: BP 131/63
[2024-02-02 03:22] VITALS: BP 144/73
[2024-02-02 05:06] LABS: BASOPHILS ABSOLUTE AUTO 0.22 K/mm3 (0.00-0.23); BASOPHILS PERCENT AUTO 1 % (0-2); EOSINOPHILS ABSOLUTE AUTO 0.04 K/mm3 (0.00-0.68); EOSINOPHILS PERCENT AUTO 0 % (0-6); Hematocrit 35.1 % (33.0-51.0); Hemoglobin 10.9 g/dL (11.5-16.0); IMMATURE GRAN ABSOLUTE AUTO 0.33 K/mm3 (0.00-0.10); IMMATURE GRAN PERCENT AUTO 2 % (0-1); LYMPHOCYTES ABSOLUTE AUTO 1.02 K/mm3 (0.84-5.20); LYMPHOCYTES PERCENT AUTO 5 % (21-46); MONOCYTES ABSOLUTE AUTO 0.65 K/mm3 (0.16-1.47); MONOCYTES PERCENT AUTO 3 % (4-13); Mean Corpuscular HGB 26.5 pg (26.0-34.0); Mean Corpuscular HGB Conc 31.1 g/dL (31.5-36.5); Mean Corpuscular Volume 85 fL (80-100); Mean Platelet Volume 11.2 fL (9.1-12.4); NEUTROPHILS PERCENT AUTO 90 % (41-73); Platelet Count 519 K/mm3 (150-400); RDW Coefficient Variation 14.6 % (11.7-14.2); RDW Standard Deviation 45.2 fL (35.1-46.3); Red Blood Cell Count 4.11 M/mm3 (3.80-5.20); White Blood Cell Count 21.76 K/mm3 (4.00-11.30)
[2024-02-02 05:48] LABS: Bun/Creatinine Ratio 21.5 (12.0-20.0); Calcium, Blood 8.6 mg/dL (8.5-10.1); Creatinine, Blood 0.51 mg/dL (0.40-1.00); Potassium, Blood 4.3 mmol/L (3.5-5.5)
[2024-02-02 07:40] VITALS: BP 136/65
[2024-02-02] MEDS ORDERED: Metoprolol Tartrate 1 MG/ML 5 ML VIAL IV ONE (10:00)
[2024-02-02] MEDS ORDERED: Metoprolol Tartrate 1 MG/ML 5 ML VIAL IV STA (11:41)
[2024-02-02 11:52] VITALS: BP 137/85
[2024-02-02] MEDS ORDERED: Metoprolol Succinate 50 MG TABCR PO SCH (12:00)
[2024-02-02] MEDS ORDERED: Metoprolol Tartrate 25 MG Tab PO ONE (13:00)
[2024-02-02 15:44] VITALS: BP 122/56
--- NOTE | 2024-02-02 16:01 | NUR ---
Education provided to cgKeiko on Plurex management. Lorena Ying RN set up Plurex Drain and was able to drain off 725 cc of cranberry colored fluid. Lorena Hunt RN placed new dressing and will chart intervention. Aiyana tolerated well and slept during draining. This PC RN notified Primary RN and CC with results of visit. PC will remain available. PC RN to meet with CG tomorrow 02/03/24 @ 1300 for Plurex training.
--- NOTE | 2024-02-02 19:36 | NUR ---
SHIFT SUMMARY: PT A&O X4. ANXIOUS THIS AM WHEN THIS RN NOTICE SOB. EARLY IN SHIFT TELE CALLED STATING PT CONVERTED FROM NSR TO AFIB AND QUICKLY TO AFLUTTER WITH A RHYTHM IN 130'S TO 150'S. DR. DURAND NOTIFIED OF CHANGED AND ORDERED 5MG IV PUSH METOPROLOL. MEDICATION GIVEN W/O CHANGE. RECEIVED CALL FROM TELE AGAIN STATING PT MAINTAINING HR IN 150'S TO 160'S. DR. DURAND NOTIFIED WITH ANOTHER DOSE OF IV METOPROLOL ORDERED. IV PUSH GIVEN WITH SECOND RN ARIEL ROSS PRESENT. PT CONVERTED TO NSR WITH A HR IN 90'S AFTER SECOND PUSH. PT HAS MAINTAINED RHYHTM THROUGHOUT REST OF SHIFT. RT CALLED THIS RN WITH NOTIFICATION OF PT HAVING AUDIBLE WHEEZING POST BREATHING TREATMENT. PO ATIVAN GIVEN WITH GOOD EFFECT. PALLIATIVE NOTIFED THIS RN THERE WOULD BE MEETING WITH PT, SON, CAREGIVER, DR. DURAND, DR. SHAW AND STUDENT DOCTORS THIS AFTERNOON AT 1330 TO DISCUSS DISCHARGE PLANS. PLANS FOR PT TO D/C WITH HOME HEALTH WHEN MEDICALLY STABLE. PLEURX DRAINED BY PALLIATIVE AND ARIEL ROSS, RN. CAREGIVER AT BEDSIDE FOR EDUCATION ON DRAIN. PALLIATIVE STATES CAREGIVER TO HAVE HANDS ON PRACTICE AT BEDSIDE TOMORROW WITH PALLIATIVE PRESENT. DR. DURAND SPOKE WITH ONCOLOGY TO DISCUSS PT REGARDING LUNG MASS. CT SCANS TO BE COMPLETED OF ABD AND PELVIS PER DR. DURAND. PT ASKED THIS RN IF THERE IS A CHANCE SHE COULD GO TO REHAB POST DISCHARGE FOR A CHANCE TO BE ABLE TO WALK AGAIN. STATED I COULD TALK WITH TEAM TOMORROW. CALL LIGHT IN REACH. BED IN LOWEST POSITION. REPORT GIVEN TO ONCOMING RN.
[2024-02-02 20:54] VITALS: BP 135/60
--- NOTE | 2024-02-03 00:50 | NUR ---
PT CAME BACK FROM CT SCAN WITH WHEEZING AND SOB. PT SAT UP IN BED TO AID IN BREATHING. SATS WERE 96% ON 3 LPM VIA NC. PT CONTINUED TO HAVE SOB AND WHEEZING AFTER 30 MINUTES. CALLED RT FOR A BREATHING TX AND GAVE ATIVAN 1 MG PO. PT SATS ARE 99% AT THIS TIME. WHEEZING SUBSIDING.
[2024-02-03 05:09] VITALS: BP 122/55
--- NOTE | 2024-02-03 05:52 | NUR ---
SHIFT SUMMARY: PT IS A/O X 4, [address] PT [address] SCAN LAST NIGHT. ON RETURN PT WAS VERY SOB AND HAD AUDIBLE WHEEZING. RT GAVE A BREATHING TX AND ATIVAN 1 MG GIVEN PT DID NOT RECOVER. PT SATS WERE LOW 90'S. RT INCREASED OXYGEN TO 4 LPM VIA NC. AFTER ABOUT 45 MINUTES, PT BREATHING BECAME NORMAL AND THERE WAS NO FURTHER WHEEZING AND SOB. PT WAS ABLE TO FALL ASLEEP. RR E/U AT THIS TIME. PLEURX DRAIN SITE DRESSING CDI. NO REDNESS, SWELLING OR DRAINAGE NOTED. PT HAD NO COMPLAINTS OF PAIN.
[2024-02-03 06:01] LABS: BASOPHILS PERCENT AUTO 1 % (0-2); EOSINOPHILS ABSOLUTE AUTO 0.04 K/mm3 (0.00-0.68); EOSINOPHILS PERCENT AUTO 0 % (0-6); Hematocrit 34.4 % (33.0-51.0); Hemoglobin 10.9 g/dL (11.5-16.0); IMMATURE GRAN ABSOLUTE AUTO 0.52 K/mm3 (0.00-0.10); IMMATURE GRAN PERCENT AUTO 2 % (0-1); LYMPHOCYTES ABSOLUTE AUTO 1.05 K/mm3 (0.84-5.20); LYMPHOCYTES PERCENT AUTO 5 % (21-46); MONOCYTES ABSOLUTE AUTO 0.71 K/mm3 (0.16-1.47); MONOCYTES PERCENT AUTO 3 % (4-13); Mean Corpuscular HGB 26.9 pg (26.0-34.0); Mean Corpuscular HGB Conc 31.7 g/dL (31.5-36.5); Mean Corpuscular Volume 85 fL (80-100); Mean Platelet Volume 11.6 fL (9.1-12.4); NEUTROPHILS ABSOLUTE AUTO 18.85 K/mm3 (1.96-9.15); NEUTROPHILS PERCENT AUTO 88 % (41-73); Platelet Count 525 K/mm3 (150-400); RDW Coefficient Variation 14.6 % (11.7-14.2); RDW Standard Deviation 44.9 fL (35.1-46.3); Red Blood Cell Count 4.05 M/mm3 (3.80-5.20); White Blood Cell Count 21.37 K/mm3 (4.00-11.30)
[2024-02-03 06:38] LABS: Albumin, Blood 2.1 g/dL (3.4-5.0); Albumin/Globulin Ratio 0.6 (0.8-1.8); Bilirubin, Total 0.4 mg/dL (0.1-1.0); Bun/Creatinine Ratio 20.9 (12.0-20.0); Calcium, Blood 8.6 mg/dL (8.5-10.1); Creatinine, Blood 0.53 mg/dL (0.40-1.00); Globulin, Blood 3.8 g/dL (2.2-4.0); Potassium, Blood 4.2 mmol/L (3.5-5.5); Total Protein, Blood 5.9 g/dL (6.4-8.2)
[2024-02-03 07:22] VITALS: BP 125/54
[2024-02-03 15:39] VITALS: BP 102/49
[2024-02-03] MEDS ORDERED: ATOR40TA PO (15:59)
[2024-02-03] MEDS ORDERED: METO50ER PO (16:04)
[2024-02-03] MEDS ORDERED: LORA.5 PO (16:04)
--- NOTE | 2024-02-03 16:08 | NUR ---
Education on Pleurx Drain Hands on training for CG on Pleurx Drain management at home. Multipule interruptions during Pleurx education for CG Keiko. PC will review with Keiko again tomorrow. Son continues to struggle with pt's sudden decline and new prognosis. Pt's spouse passed in January a couple years ago. Son's B-Day is tomorrow. Lots of anticipatory greif.
--- NOTE | 2024-02-03 19:19 | NUR ---
SHIFT SUMMARY: PT A&O X4. PLEASANT AND COOPERATIVE WITH CARE. HOME 02 EVAL COMPLETED. 2L 02 NEEDED FOR DISCHARGE. PLEURX DRAIN EMPTIED BY PALLIATIVE AND PT CAREGIVER THIS SHIFT. DISCHARGE ORDERS PLACED BUT PT SON APPEALED DISCHARGE. PT SUPPOSED TO HAVE APT WITH DR. HERNANDEZ TOMORROW @ 1030. FAMILY AT BEDSIDE THROUGHOUT SHIFT. NEW IV PLACED IN RFA. PT HAD ONE ANXIOUS EPISODE THIS AM. ATIVAN GIVEN PER EMAR. PT LETHARGIC THROUGHOUT REST OF SHIFT. Q2 TURNS COMPLETED. CALL LIGHT IN REACH. BED IN LOWEST POSITION.
[2024-02-03 20:12] VITALS: BP 142/119
[2024-02-04 03:12] VITALS: BP 161/88
--- NOTE | 2024-02-04 06:33 | NUR ---
SHIFT SUMMARY: PT IS A/O X 4, 2 ASSIST, PLEASANT AND COOPERATIVE WITH CARE. PLEURX SITE DRESSING CDI. NO REDNESS OR SWELLING NOTED. PT HAD ONE EPISODE OF ANXIETY WHICH CAUSED HER TO BECOME SOB WITH AUDIBLE WHEEZES. RT REPORTED BREATHING TX INNEFFECTIVE FOR THIS TYPE OF WHEEZING. GAVE PT ATIVAN 1 MG WHICH WAS EFFECTIVE. PT HAD NO REPORTS OF PAIN. PT SNACKED ON YOGURT AND PEACHES LAST NIGHT.
[2024-02-04 07:24] VITALS: BP 153/76
--- NOTE | 2024-02-04 09:00 | NUR ---
pt very anxious this am, we repositioned her, so she can breath easier, did not help, gave ativan which did help after a while, a/ox4, not really redirectable with trying to verbally calm her, lungs are clear, but definate wheeze in upper bronchial area, sats are above 90%, did turn her 02 back up to four liters for now, hrirr, tele in place running afib per monitor, see strip, no edema noted, ppp+1, cap refill <3 sec, vs stable, afebrile, piv to rfa site is clear and patent, btx4, abd flat soft nontender, purwick in place for voids, skin c/w/d, kwesi, chloe, call light in reach.
[2024-02-04 15:21] VITALS: BP 130/62
--- NOTE | 2024-02-04 16:55 | NUR ---
Met with kristian she was having a breathing treatment, very fatiued and dyspnic struggled tracking conversation. Stated she just wants to go home. pt frail ventilation is poor. Arm movement is limited. Metw tih son today he is struggling with plan. Pt is wavering on wanting care. Review pronosis with son. To get patient to appointments would be very difficult her kps score is 30 to 20% So was hesitant to talk to her about choices. Today is his birthday and he is anxious that she does not pass on his birthday. Reviewed with him strategies of discussion with her tonight. He feels hospice is best. We discussed giving her a loving and comfortable passing. He recieved a call from a group home during our interaction about placement. Pt will need a same day admit to home health or hospice due to pleurex and frailty. Will follow up with son in AM.
--- NOTE | 2024-02-04 19:23 | NUR ---
PT HERE WITH FAMILY THIS AFT. SEVERAL WERE IN. BROUGHT HER DOGGIES. SHE HAPPY ABOUT THAT. DID ADMIN ATIVAN FOR ANX THIS EVS. PT RESTING WELL AT THIS TIME. NO FURTHER CONCERNS NOTED. BED IN LOW POSITION, CALL LITE IN REACH, CALLS APPOROP
[2024-02-04 19:41] VITALS: BP 133/60
[2024-02-05 02:47] VITALS: BP 154/72
--- NOTE | 2024-02-05 04:38 | NUR ---
SHIFT SUMMARY 4L NC. PT REPORTED FEELING ANXIOUS T/O NIGHT. PRN 0.5 MG ATIVAN GIVEN X2. PLEURX DRAIN ACCESSED AND DRAINED 250 OUT, REDRESSED. TURN Q2. PURWIC, REQUESTING BEDPAN. REPORTS NO PAIN. ELEVATING LEGS. HOB ELEVATED
[2024-02-05 07:29] VITALS: BP 146/73
--- NOTE | 2024-02-05 08:16 | NUR ---
pt states shes panicking, she is holding the side rails, has upper bronchial wheeze, sats are 94 - 95% on 4 liters o2 via n/c, no cough noted, hrr, tele in place running sr in the 90's, no edema noted, ppp+1, cap refill <3 sec, vs stable, afebrile, piv to rfa site is clear and patent, btx4, abd flat soft nontender, voids via purwick, briefs in place for bowel incont, skin c/w/d, has pluerex site to right side, moves arms ok, is very weak, chloe, call light in reach.
[2024-02-05] MEDS ORDERED: Sertraline HCl 100 MG Tab PO SCH (09:00)
[2024-02-05] MEDS ORDERED: Atropine Sulfate 1% Opth Soln 2ML BTL SL PRN (12:50)
[2024-02-05] MEDS ORDERED: Morphine Sulfate 20 MG/1ML 1 ML Oral Syringe SL PRN (12:50)
--- NOTE | 2024-02-05 13:07 | NUR ---
GOALS OF CARE - TRANSITION TO COMFORT CARE - D/C HOME WITH HOSPICE MET WITH PT'S SON, ARRON IN THE PALLIATIVE CARE OFFICE. ARRON IS AGREEABLE WITH HOSPICE CARE. THIS PC RN THEN MET WITH PT AT HER BEDSIDE. CASANDRA REPORTS THIS MORNING SHE WAS, "READY TO KICK THE CAN". PT EXPRESSED NOT WANTING TO RETURN TO THE HOSPITAL ANYMORE AND AGREES THAT SHE AND HER BODY ARE TIRED. PT WOULD LIKE TO RECEIVE HOSPICE CARE. PT HAS ONLY BEEN OUT OF BED A COUPLE OF TIMES THIS HOSPITAL VISIT. SHE HAS BEEN A MAX ASSIST FROM BED TO CHAIR. POOR PO INTAKE. DYSPNEA INCREASES HER ANXIETY INCREASES. RECEIVED TELEPHONE ORDERS FROM DR. SHAW TO START COMFORT CARE NOW. DR. SHAW TO PLACE HOSPICE D/C ORDERS WITH HARD SCRIPTS FOR CONTROLLED MEDICATIONS. [facility] AD[facility] 02/06/24. PC WILL REMAIN AVAILABLE NEEDED. REPORT GIVEN TO PRIMARY RN AND CC.
[2024-02-05] MEDS ORDERED: MORP20L PO (14:01)
--- NOTE | 2024-02-05 18:01 | NUR ---
pt has been discharged to home on hospice, iv has been removed intact, transport will be here at 1815, son was given script for ativan, then hospice will be there in am. gave pt ativan for trip, she is sleeping soundly. call light in reach. family at bedside.
--- NOTE | 2024-02-05 19:28 | NUR ---
PT HAS BEEN DISCHARGED, SON AT BEDSIDE WITH PT. TRANSPORT PICKED UP VIA [facility], BELONGINGS SENT WITH SON
== END 2024-02-05 19:30 | disposition hospice, home (50) | DRG 843 ==
LOC: ER 12:18 → MEDS 12:19
PROVIDERS: Family Medicine; Nurse Practitioner Acute Care; Physician Assistant; Student in an Organized Health Care Education/Training Program; Surgery; ADMIT Internal Medicine
PROC: 5A09357 Assistance with Respiratory Ventilation, Less than 24 Consecutive Hours, Continuous Positive Airway Pressure (ICD-10-PCS; 2024-01-29)
PROC: 0W9B00Z Drainage of Left Pleural Cavity with Drainage Device, Open Approach (ICD-10-PCS; principal; 2024-01-30 10:30)
DX: C7A.8 Other malignant neuroendocrine tumors (principal); J18.9 Pneumonia, unspecified organism; J96.01 Acute respiratory failure with hypoxia; E87.1 Hypo-osmolality and hyponatremia; F03.911 Unspecified dementia, unspecified severity, with agitation; I45.2 Bifascicular block; I47.20 Ventricular tachycardia, unspecified; J91.0 Malignant pleural effusion; M48.02 Spinal stenosis, cervical region; K59.00 Constipation, unspecified; Z66 Do not resuscitate; E11.22 Type 2 diabetes mellitus with diabetic chronic kidney disease; F32.A Depression, unspecified; I12.9 Hypertensive chronic kidney disease with stage 1 through stage 4 chronic kidney disease, or unspecified chronic kidney disease; N18.30 Chronic kidney disease, stage 3 unspecified; E78.5 Hyperlipidemia, unspecified; E03.9 Hypothyroidism, unspecified; I48.0 Paroxysmal atrial fibrillation; Z88.0 Allergy status to penicillin; Z79.899 Other long term (current) drug therapy; Z79.84 Long term (current) use of oral hypoglycemic drugs; Z90.710 Acquired absence of both cervix and uterus; Z98.890 Other specified postprocedural states; Z87.891 Personal history of nicotine dependence
CPT/HCPCS: 32555; 36415; 70470; 71045; 71046; 71250; 74177; 80048; 80053; 80202; 82803; 82945; 82947; 83615; 83735; 83880; 83986; 84145; 84157; 84439; 84443; 84478; 84481; 84484; 85025; 85027; 85379; 85610; 87070; 87075; 87205; 88108; 88305; 88341; 88342; 89051; 93005; 93010; 93306; 94640; 94660; 94664; 94760; 94761; 94762; 96365-59; 96367-59; 96375-59; 97110; 97116; 97162; 97165; 97530; 99285-25; A9270; C1729; G0378; J0456; J0692; J0696; J2060; J2250; J3010; J3370; J7030; J7050; J7120; Q9967